=== PATIENT | female | born 1955 | race Caucasian/White ===

== ENCOUNTER → 2017-12-03 | Outpatient (CLI) | payer OTHER ==
[2017-06-24 14:19] VITALS: BMI 33.9
[~2017-12-03] MED LIST: ALBU8.5H12 IH; ALE70 PO; BENZ200C15 PO; CALC-703 PO; CELE-1 PO; CET10 PO; CETI10CA8 PO; CHOL100052 PO; CHOL200021 PO; CLON-303 PO; CYCL10TA29 PO; DEN60I SUBQ; DULO30CA35 PO; DULO60CA7 PO; ESOM40CA42 PO; EZE10 PO; FLU60SYR30 IM ONLY; GAB300 PO; GABA-549 PO; GOLYTE FT; HYDR-2966 PO; HYDR-385 PO; HYDR-4309 PO; LANS30CA70 PO; LEVE500T73 PO; LEVO-85 PO; LEVO25TA61 PO; LINA145C PO; LINA290C PO; LOR5/325; LORA-1456 PO; MOMR ENA; MON10 PO; MULT1TAB54 PO; NARA2.5T2 PO; NARA2.5T6 PO; OMEP40CA48 PO; ONDA4TAB PO; OXYC-870 PO; PANT40TA65 PO; PER PO; POTA20TA10 PO; PROP20TA56 PO; RANI-320 PO; RANI-324 PO; RIZA10TA PO; RIZA10TA24 PO; ROP5 PO; ROPI1TAB35 PO; ROPI1TAB36 PO; SUCR1TAB85 PO; SUMA100T32 PO; THYR15TA6 PO; THYR30TA21 PO; THYR60TA25 PO; TOPI-121 PO; TOPI100T PO; TRA50; TRAM-420 PO
--- NOTE | 2017-12-03 18:37 | EKG ---
FACILITY: [facility] - [place] PATIENT NAME: LUANN WALLACE : [id number] MR: [id number] V: [id number] EXAM DATE: ORDERING PHYSICIAN: BRIDGETTE YI TECHNOLOGIST: JARRED RUSSELL Test Reason : CHEST PAIN Blood Pressure : / mmHG Vent. Rate : 068 BPM Atrial Rate : 068 BPM P-R Int : 170 ms QRS Dur : 084 ms QT Int : 410 ms P-R-T Axes : 056 015 006 degrees QTc Int : 435 ms Normal sinus rhythm Nonspecific T wave abnormality Abnormal ECG Now with diffuse T flattening compared to previous Confirmed by HARRISON TYLER ([id number]) on 12/03/2017 11:03:40 PM Referred By: Confirmed By:HARRISON TYLER
== END ==
LOC: LAB 11:08
PROVIDERS: ATTEND Emergency Medicine
DX: L68.9 Hypertrichosis, unspecified (principal); E55.9 Vitamin D deficiency, unspecified; R94.31 Abnormal electrocardiogram [ECG] [EKG]
CPT/HCPCS: 36415; 82306; 82310; 82374; 82435; 82565; 82947; 84132; 84295; 84484; 84520

== ENCOUNTER → 2017-12-08 | Outpatient (CLI) | payer OTHER ==
[2017-06-24 14:19] VITALS: BMI 33.9
== END ==
LOC: LAB 09:46
PROVIDERS: ATTEND Emergency Medicine
DX: E87.6 Hypokalemia (principal); R94.6 Abnormal results of thyroid function studies
CPT/HCPCS: 36415; 82310; 82374; 82435; 82565; 82947; 84132; 84295; 84443; 84520

== ENCOUNTER → 2017-12-09 | Outpatient (CLI) | payer OTHER ==
[2017-06-24 14:19] VITALS: BMI 33.9
== END ==
LOC: LAB 09:55
PROVIDERS: ATTEND Emergency Medicine
DX: R30.0 Dysuria (principal)
CPT/HCPCS: 81001

== ENCOUNTER → 2017-12-15 | Outpatient (CLI) | payer OTHER ==
[2017-06-24 14:19] VITALS: BMI 33.9
== END ==
LOC: LAB 09:49
PROVIDERS: ATTEND Emergency Medicine
DX: E87.6 Hypokalemia (principal)
CPT/HCPCS: 36415; 82310; 82374; 82435; 82565; 82947; 84132; 84295; 84520

== ENCOUNTER 2017-12-17 13:13 | Emergency (ER) | payer OTHER ==
[2017-06-24 14:19] VITALS: Ht 167.6 cm; Wt 94.8 kg
[~2017-12-17] VITALS: Ht 167.6 cm; Wt 94.8 kg
--- NOTE | 2017-12-17 13:27 | ER Report ---
History and Physical Time Seen By MD: 13:25 Hx. of Stated Complaint: LOW k+, SOB HPI/ROS CHIEF COMPLAINT: Low potassium shortness of breath HISTORY OF PRESENT ILLNESS: [age] female history of hypokalemia is on potassium supplements last 3 or 4 days is been running in the 2.8 3.2 range supposedly for the last day or so she's been having more fatigue abdominal cramping episodically and some mild nonexertional shortness of breath. Patient's last time she had her potassium checked was several days ago she is denying chest pain at this time exertional dyspnea orthopnea or PND patient does state that that she is taking her supplements as indicated they believe this is secondary to her hydrochlorothiazide utilization which she has subsequently discontinued REVIEW OF SYSTEMS: Respiratory: No cough, mild dyspnea. Cardiovascular: No chest pain, no palpitations. Gastrointestinal: No vomiting, no abdominal pain. Musculoskeletal: No back pain. Remainder of the 14 system rev: Yes Allergies: Coded Allergies: levetiracetam (Verified Allergy, Intermediate, Rash, 12/17/17) tree and shrub pollen (Verified Allergy, Unknown, 12/17/17) weed pollen (Verified Allergy, Unknown, 12/17/17) Home Meds Active Scripts Potassium Chloride (Potassium Chloride) 20 Meq Tablet.er, 1 TAB PO BID, #5 TAB 0 Refills Take 40 meq x 3 days. 20 meq dialy x7 days. Prov:BRIDGETTE YI MD 12/15/17 Rizatriptan Benzoate (MAXALT) 10 Mg Tablet, 10 MG PO ONCE, #20 TAB Repeat in 2 hours if inadequate relief. Max of 3 tabs a day. Maximum of ten days in a month Prov:BRIDGETTE YI MD 12/08/17 Tramadol Hcl (TRAMADOL HCL) 50 Mg Tablet, 50 MG PO Q4-6H, #60 TAB 5 Refills Prov:BRIDGETTE YI MD 10/29/17 Topiramate (TOPAMAX) 100 Mg Tablet, 100 MG PO DAILY, #90 TAB 3 Refills Prov:BRIDGETTE YI MD 10/22/17 Levothyroxine Sodium (LEVOTHYROXINE SODIUM) 25 Mcg Tablet, 1 TAB PO DAILY, #90 TAB 3 Refills Prov:BRIDGETTE YI MD 10/22/17 Gabapentin (GABAPENTIN) 300 Mg Capsule, 1 CAP PO HS, #90 CAPSULE 3 Refills Prov:BRIDGETTE YI MD 10/22/17 Celecoxib (CELEBREX) 200 Mg Capsule, 1 CAP PO DAILY, #90 CAPSULE 3 Refills Prov:BRIDGETTE YI MD 10/22/17 Ropinirole Hcl (ROPINIROLE HCL) 1 Mg Tablet, 1 MG PO TID, #270 TAB 3 Refills Prov:BRIDGETTE YI MD 10/22/17 Duloxetine HCl (Duloxetine HCl) 60 Mg Capsule.dr, 1 CAP PO DAILY, #30 TAB 11 Refills Prov:BRIDGETTE YI MD 04/30/17 Ranitidine Hcl (ZANTAC) 150 Mg Tablet, 150 MG PO BID Y for REFLUX, #60 TAB 3 Refills Prov:KENDRA RINCON MD 04/09/16 Pantoprazole Sodium (PANTOPRAZOLE SODIUM) 40 Mg Tablet.dr, 1 TAB PO QDAY, #60 CAP 3 Refills Please take 1 tablet 1/2 hour before breakfast and 1 tablet 1/2 hour before supper. Prov:KENDRA RINCON MD 04/09/16 Reported Medications Cholecalciferol (Vitamin D3) (VITAMIN D) 2,000 Unit Capsule, 2000 UNIT PO DAILY , CAPSULE 12/02/14 Multivitamin (MULTI-VITAMIN DAILY) 1 Each Tablet, 1 EACH PO 11/16/14 Discontinued Scripts Clonazepam (CLONAZEPAM) 1 Mg Tablet, 0.5-1 MG PO BID, #45 TAB 5 Refills Take half tab in am and 1 tab at night Prov:BRIDGETTE YI MD 08/28/17 Hydrochlorothiazide (HYDROCHLOROTHIAZIDE) 25 Mg Tablet, 1 TAB PO QDAY, #90 TAB 3 Refills Prov:BRIDGETTE YI MD 10/22/17 Reviewed Nurses Notes: Yes Old Medical Records Reviewed: Yes Hx Smoking: No Smoking Status: Never Smoker Hx Substance Use Disorder: No Hx Alcohol Use: Yes Constitutional Vital Sign - Last 24 Hours 12/17/17 12/17/17 12/17/17 12/17/17 13:19 13:19 13:28 13:30 Temp 98.7 Pulse 88 85 Resp 18 B/P (MAP) 137/88 137/88 (104) 128/72 (90) Pulse Ox 98 95 O2 Delivery Room Air 2/12/17/17 12/17/17 12/17/17 13:43 13:58 14:00 14:13 Pulse 76 78 80 Resp 13 11 B/P (MAP) 116/69 (85) Pulse Ox 96 93 96 12/17/17 12/17/17 12/17/17 14:28 14:30 14:43 Pulse 81 84 Resp 14 12 B/P (MAP) 106/56 (73) Pulse Ox 91 93 Physical Exam General Appearance: The patient is alert, has no immediate need for airway protection and no current signs of toxicity. [ ] Eyes: Pupils equal and round no injection. Respiratory: Chest is non tender, lungs are clear to auscultation. Cardiac: regular rate and rhythm [ ] Gastrointestinal: Abdomen is soft and non tender, no masses, bowel sounds normal. Musculoskeletal: Neck: Neck is supple and non tender. Extremities have full range of motion and are non tender. Skin: No rashes or lesions. [ ] DIFFERENTIAL DIAGNOSIS: After history and physical exam differential diagnosis was considered for hypokalemia pulmonary emboli aortic dissection cardiac abnormality Medical Decision Making Data Points Result Diagram: 12/17/17 1332 12/17/17 1332 Laboratory Hematology Test 12/17/17 13:32 Red Blood Count 5.46 M/uL (4.17-5.56) Mean Corpuscular Volume 86.1 fL (80.0-96.0) Mean Corpuscular Hemoglobin 29.5 pg (26.0-33.0) Mean Corpuscular Hemoglobin Concent 34.3 g/dL (32.0-36.0) Red Cell Distribution Width 14.8 % (11.5-14.5) Mean Platelet Volume 7.4 fL (7.2-11.1) Neutrophils (%) (Auto) 61.3 % (39.4-72.5) Lymphocytes (%) (Auto) 26.6 % (17.6-49.6) Monocytes (%) (Auto) 8.7 % (4.1-12.4) Eosinophils (%) (Auto) 3.1 % (0.4-6.7) Basophils (%) (Auto) 0.3 % (0.3-1.4) Nucleated RBC Relative Count (auto) 0.0 /100WBC Neutrophils # (Auto) 5.0 K/uL (2.0-7.4) Lymphocytes # (Auto) 2.2 K/uL (1.3-3.6) Monocytes # (Auto) 0.7 K/uL (0.3-1.0) Eosinophils # (Auto) 0.3 K/uL (0.0-0.5) Basophils # (Auto) 0.0 K/uL (0.0-0.1) Nucleated RBC Absolute Count (auto) 0.00 K/uL Prothrombin Time 11.9 seconds (12.0-14.4) Prothromb Time International Ratio 0.88 Activated Partial Thromboplast Time 27 seconds (23-35) D-Dimer Quantitative (PE/DVT) 3.07 ug/ml (0-0.50) Sodium Level 142 mmol/L (137-145) Potassium Level 3.3 mmol/L (3.5-5.0) Chloride Level 105 mmol/L (98-107) Carbon Dioxide Level 26 mmol/L (22-31) Blood Urea Nitrogen 22 mg/dl (7-18) Creatinine 1.00 mg/dl (0.52-1.04) Glomerular Filtration Rate Calc 56.0 Random Glucose 94 mg/dl (75-110) Calcium Level 10.2 mg/dl (8.4-10.2) Total Bilirubin 0.3 mg/dl (0.2-1.3) Aspartate Amino Transf (AST/SGOT) 22 U/L (0-35) Alanine Aminotransferase (ALT/SGPT) 41 U/L (0-56) Alkaline Phosphatase 134 U/L (0-126) Troponin I < 0.012 ng/ml Total Protein 7.0 gm/dl (6.3-8.2) Albumin 3.7 g/dl (3.5-5.0) Chemistry Test 12/17/17 13:32 White Blood Count 8.2 k/uL (4.5-11.0) Red Blood Count 5.46 M/uL (4.17-5.56) Hemoglobin 16.1 g/dL (12.0-16.0) Hematocrit 47.0 % (34.0-47.0) Mean Corpuscular Volume 86.1 fL (80.0-96.0) Mean Corpuscular Hemoglobin 29.5 pg (26.0-33.0) Mean Corpuscular Hemoglobin Concent 34.3 g/dL (32.0-36.0) Red Cell Distribution Width 14.8 % (11.5-14.5) Platelet Count 244 K/uL (150-450) Mean Platelet Volume 7.4 fL (7.2-11.1) Neutrophils (%) (Auto) 61.3 % (39.4-72.5) Lymphocytes (%) (Auto) 26.6 % (17.6-49.6) Monocytes (%) (Auto) 8.7 % (4.1-12.4) Eosinophils (%) (Auto) 3.1 % (0.4-6.7) Basophils (%) (Auto) 0.3 % (0.3-1.4) Nucleated RBC Relative Count (auto) 0.0 /100WBC Neutrophils # (Auto) 5.0 K/uL (2.0-7.4) Lymphocytes # (Auto) 2.2 K/uL (1.3-3.6) Monocytes # (Auto) 0.7 K/uL (0.3-1.0) Eosinophils # (Auto) 0.3 K/uL (0.0-0.5) Basophils # (Auto) 0.0 K/uL (0.0-0.1) Nucleated RBC Absolute Count (auto) 0.00 K/uL Prothrombin Time 11.9 seconds (12.0-14.4) Prothromb Time International Ratio 0.88 Activated Partial Thromboplast Time 27 seconds (23-35) D-Dimer Quantitative (PE/DVT) 3.07 ug/ml (0-0.50) Glomerular Filtration Rate Calc 56.0 Calcium Level 10.2 mg/dl (8.4-10.2) Total Bilirubin 0.3 mg/dl (0.2-1.3) Aspartate Amino Transf (AST/SGOT) 22 U/L (0-35) Alanine Aminotransferase (ALT/SGPT) 41 U/L (0-56) Alkaline Phosphatase 134 U/L (0-126) Troponin I < 0.012 ng/ml Total Protein 7.0 gm/dl (6.3-8.2) Albumin 3.7 g/dl (3.5-5.0) Coagulation Test 12/17/17 13:32 Prothrombin Time 11.9 seconds Prothromb Time International Ratio 0.88 Activated Partial Thromboplast Time 27 seconds D-Dimer Quantitative (PE/DVT) 3.07 ug/ml ED Course/Re-evaluation ED Course ED clinical course medical decision make a 62-year-old female history of hypokalemia potassium today is 3.3 she is currently on resuscitative by mouth medication 40 mEq daily she had an elevated d-dimer CT was negative respiratory workup is normal we'll advise her to continue on her anti-and her potassium supplementation and follow up with primary care diagnosis hypokalemia EKG was unremarkable Decision to Disposition Date: Dec 17, 2017 Decision to Disposition Time: 15:46 Depart Departure Latest Vital Signs Vital Signs Date Time Temp Pulse Resp B/P (MAP) Pulse Ox O2 Delivery O2 Flow Rate FiO2 12/17/17 14:43 84 12 93 12/17/17 14:30 106/56 (73) 12/17/17 13:19 98.7 Room Air Impression: Primary Impression: Hypokalemia Condition: Improved Disposition: HOME OR SELF-CARE Referrals: BRIDGETTE YI MD (PCP) 5 Days Patient Instructions: Hypokalemia (DC) FARHANA FANG MD Dec 17, 2017 13:27
--- NOTE | 2017-12-17 13:33 | EKG ---
FACILITY: [facility] - [place] PATIENT NAME: LUANN WALLACE : [id number] MR: [id number] V: [id number] EXAM DATE: ORDERING PHYSICIAN: FARHANA FANG TECHNOLOGIST: Kalia Bhardwaj Reason : Blood Pressure : / mmHG Vent. Rate : 080 BPM Atrial Rate : 080 BPM P-R Int : 164 ms QRS Dur : 084 ms QT Int : 380 ms P-R-T Axes : 041 019 053 degrees QTc Int : 438 ms Normal sinus rhythm Low voltage QRS Borderline ECG When compared with ECG of 03-DEC-2017 10:58, Nonspecific T wave abnormality, improved in Anterior leads Confirmed by KENDRA SYLVESTER ([id number]) on 12/17/2017 3:14:02 PM Referred By: Confirmed By:KENDRA SYLVESTER
[2017-12-17 13:40] LABS: PLATELET COUNT, AUTOMATED 244 K/uL (150-450)
[2017-12-17 13:54] LABS: INR 0.88
--- NOTE | 2017-12-17 14:01 | RADIOLOGY IMAGING REPORT ---
FACILITY: [facility] - [place] PATIENT NAME: Rosa M Espinoza : 1955 MR: [id number] V: [id number] EXAM DATE: ORDERING PHYSICIAN: FARHANA FANG TECHNOLOGIST: Location: [facility] Patient: Rosa M Espinoza : 1955 Visit/Account:[id number] Date of Sevice: 12/17/2017 Exam type: CHEST PA AND LAT History: sob Comparison: August 19, 2016. Findings: The lungs are free of acute effusions, infiltrates or edema. No evidence of a pneumothorax or pneumo mediastinum. The cardiac silhouette is normal in size. The trachea is in midline. There are mild s pondylotic changes thoracic spine. IMPRESSION: 1. No acute cardiac pulmonary process is seen Report Dictated By: Miguelina Pereira MD at 12/17/2017 1:56 PM Report E-Signed By: Miguelina Pereira MD at 12/17/2017 1:58 PM [id number]
[2017-12-17] MEDS ORDERED: IOPAMIDOL 76% 75 ML INFUS BTL 75 ML ONE (14:41)
[2017-12-17] MEDS ORDERED: NS 0.9% 150 ML BAG 150 ML ONE (14:41)
--- NOTE | 2017-12-17 15:25 | RADIOLOGY IMAGING REPORT ---
FACILITY: [facility] PATIENT NAME: Rosa M Espinoza : 1955 MR: [id number] V: [id number] EXAM DATE: ORDERING PHYSICIAN: FARHANA FANG TECHNOLOGIST: Location: [facility] [place] Patient: Rosa M Espinoza : 1955 Visit/Account:[id number] Date of Sevice: 12/17/2017 EXAMINATION: CT CHEST PULMONARY ANGIOGRAM COMPARISON: Chest x-ray same day and earlier. Chest CT 06/23/2017 and earlier. HISTORY: Shortness of breath. PROCEDURE: Pulmonary arterial phase imaging of the chest with 75 mL intravenous Isovue 370. Reconstru ction of the source data set includes multiplanar 2D in the sagittal and coronal planes, and 3D recon structed coronal slab MIP series. One of the following dose optimization techniques was utilized in the performance of this exam: Autom ated exposure control; adjustment of the mA and/or kV according to the patient's size; or use of an i terative reconstruction technique. Specific details can be referenced in the facility's radiology C T exam operational policy. FINDINGS: Pulmonary vasculature: There is good contrast opacification of the pulmonary arterial system. No pul monary embolism. Main pulmonary artery size is normal. Cardiac and mediastinum: Cardiac chamber size is normal. No pericardial effusion. The presumed perica rdial cyst demonstrated on the prior studies is no longer identified. Thoracic aorta is unremarkable. No thoracic lymph node enlargement. Small hiatal hernia. Lungs and pleura: Mild lung base atelectasis. No consolidation or nodule. No pneumothorax, edema, or effusion. Airways: The central airways are patent. Upper abdomen: No evidence of acute disease in the visualized upper abdomen. Cholecystectomy. Small h iatal hernia. Osseous structures: Negative. IMPRESSION: No pulmonary embolism or evidence of acute cardiopulmonary disease. Report Dictated By: Vasquez Chan MD at 12/17/2017 3:09 PM Report E-Signed By: Vasquez Chan MD at 12/17/2017 3:20 PM WSN:[id number]
[2017-12-17 15:59] VITALS: BP 121/52
== END 2017-12-17 16:04 | disposition home or self-care (01) ==
LOC: ER 13:22
DX: E87.6 Hypokalemia (principal)
CPT/HCPCS: 71046; 71275; 84484; 85025; 85379; 85610; 85730; 93005; 99284; Q9967; 82040; 82247; 82310; 82374; 82435; 82565; 82947; 84075; 84132; 84155; 84295; 84450; 84460; 84520

== ENCOUNTER → 2017-12-26 | Outpatient (CLI) | payer OTHER ==
[2017-06-24 14:19] VITALS: BMI 33.9
[~2017-12-26] MED LIST changes: +CORED OT; +SUMA6PEN7 SQ
== END ==
LOC: LAB 10:26
PROVIDERS: ATTEND Emergency Medicine
DX: E87.6 Hypokalemia (principal)
CPT/HCPCS: 36415; 82310; 82374; 82435; 82565; 82947; 84132; 84295; 84520

== ENCOUNTER 2018-03-15 08:37 | Emergency (ER) | payer OTHER ==
[2017-06-24 14:19] VITALS: Wt 94.8 kg
[~2018-03-15 08:37] MED LIST changes: +AMOX-559 PO; +CODE118S5 PO; -RANI-324 PO; +RANI-366 PO
--- NOTE | 2018-03-15 08:46 | ER Report ---
History and Physical Time Seen By MD: 08:46 HPI/ROS 62-year-old female with multiple medical problems presents to the emergency department with a sharp pain in her left lower chest as well as cramping in her bilateral lower extremities that she has had on and off for months. She reports cramping of her lower extremities in the middle of the night. She has had hypokalemia in the past, but is not currently on potassium. She otherwise has no shortness of breath, no rashes, and no pleuritic chest pain. No PE risk factors. No fever chills, but reports a cough due to seasonal allergies. Remainder of the 14 system rev: Yes Allergies: Coded Allergies: levetiracetam (Verified Allergy, Intermediate, Rash, 12/17/17) tree and shrub pollen (Verified Allergy, Unknown, 12/17/17) weed pollen (Verified Allergy, Unknown, 12/17/17) clonazepam (Verified Adverse Reaction, Intermediate, Zombie, 12/26/17) hydrochlorothiazide (Verified Adverse Reaction, Intermediate, Severe hypokalemia, 12/26/17) Home Meds Active Scripts Sumatriptan Succinate (IMITREX) 100 Mg Tablet, 100 MG PO ONCE, #10 TAB Take one tablet at onset of headache and repeat in 2 hours if needed. Prov:BRIDGETTE YI MD 02/17/18 Pantoprazole Sodium (PANTOPRAZOLE SODIUM) 40 Mg Tablet.dr, 1 TAB PO QDAY, #60 CAP 3 Refills Please take 1 tablet 1/2 hour before breakfast and 1 tablet 1/2 hour before supper. Prov:KENDRA RINCNO MD 01/13/18 Tramadol Hcl (TRAMADOL HCL) 50 Mg Tablet, 50 MG PO Q4-6H, #60 TAB 5 Refills Prov:BRIDGETTE YI MD 10/29/17 Topiramate (TOPAMAX) 100 Mg Tablet, 100 MG PO DAILY, #90 TAB 3 Refills Prov:BRIDGETTE YI MD 10/22/17 Levothyroxine Sodium (LEVOTHYROXINE SODIUM) 25 Mcg Tablet, 1 TAB PO DAILY, #90 TAB 3 Refills Prov:BRIDGETTE YI MD 10/22/17 Gabapentin (GABAPENTIN) 300 Mg Capsule, 1 CAP PO HS, #90 CAPSULE 3 Refills Prov:BRIDGETTE YI MD 10/22/17 Celecoxib (CELEBREX) 200 Mg Capsule, 1 CAP PO DAILY, #90 CAPSULE 3 Refills Prov:BRIDGETTE YI MD 10/22/17 Ropinirole Hcl (ROPINIROLE HCL) 1 Mg Tablet, 1 MG PO TID, #270 TAB 3 Refills Prov:BRIDGETTE YI MD 10/22/17 Duloxetine HCl (Duloxetine HCl) 60 Mg Capsule.dr, 1 CAP PO DAILY, #30 TAB 11 Refills Prov:BRIDGETTE YI MD 04/30/17 Ranitidine Hcl (ZANTAC) 150 Mg Tablet, 150 MG PO BID Y for REFLUX, #60 TAB 3 Refills Prov:KENDRA RINCON MD 04/09/16 Reported Medications Cholecalciferol (Vitamin D3) (VITAMIN D) 2,000 Unit Capsule, 2000 UNIT PO DAILY , CAPSULE 12/02/14 Multivitamin (MULTI-VITAMIN DAILY) 1 Each Tablet, 1 EACH PO 11/16/14 Discontinued Scripts Promethazine HCl/Codeine (Promethazine-Codeine Syrup) 6.25 Mg-10 Mg/5 Ml Syrup, 5 ML PO Q4-6H, #200 MISC Prov:BRIDGETTE YI MD 01/21/18 Potassium Chloride (Potassium Chloride) 20 Meq Tablet.er, 1 TAB PO BID, #5 TAB 0 Refills Take 40 meq x 3 days. 20 meq dialy x7 days. Prov:BRIDGETTE YI MD 12/15/17 Reviewed Nurses Notes: Yes Old Medical Records Reviewed: Yes Hx Smoking: No Smoking Status: Never Smoker Hx Substance Use Disorder: No Hx Alcohol Use: Yes Constitutional Vital Sign - Last 24 Hours 03/15/18 03/15/18 03/15/18 03/15/18 08:37 08:42 08:45 08:52 Temp 97.9 Pulse ??? 79 81 Resp 16 B/P (MAP) 144/75 144/75 (98) Pulse Ox 96 96 03/15/18 03/15/18 03/15/18 03/15/18 09:00 09:07 09:22 09:30 Pulse 80 76 B/P (MAP) 142/76 (98) 138/82 (100) Pulse Ox 95 91 03/15/18 03/15/18 03/15/18 03/15/18 09:37 09:52 10:00 10:07 Pulse ? B/P (MAP) 128/77 (94) Pulse Ox 92 84 03/15/18 03/15/18 03/15/18 03/15/18 10:22 10:27 10:30 10:42 Pulse 72 74 72 B/P (MAP) 115/72 (86) Pulse Ox 90 92 89 03/15/18 03/15/18 03/15/18 03/15/18 10:57 11:00 11:12 11:27 Pulse 72 78 78 B/P (MAP) 110/73 (85) Pulse Ox 90 95 92 03/15/18 03/15/18 11:30 11:42 Pulse 85 B/P (MAP) 127/67 (87) Pulse Ox 91 Physical Exam General Appearance: The patient is alert, has no immediate need for airway protection and no current signs of toxicity. Eyes: Pupils equal and round no injection. Respiratory: Chest is non tender, lungs are clear to auscultation. Cardiac: regular rate and rhythm Gastrointestinal: Abdomen is soft and non tender, no masses, bowel sounds normal. Musculoskeletal: Mild TTP of the left lower, lateral chest wall Extremities: have full range of motion and are non tender. Skin: No rashes or lesions. DIFFERENTIAL DIAGNOSIS: After history and physical exam differential diagnosis was considered for PE, cardiac ischemia, infection, pleurisy, electrolyte disturbance Medical Decision Making Data Points Result Diagram: 03/15/18 0850 03/15/18 0850 Laboratory Hematology Test 03/15/18 08:46 03/15/18 08:50 Urine Color Straw Urine Clarity Clear Urine pH 8.0 pH (4.8-9.5) Urine Specific [place]le 1.003 Urine Protein Negative mg/dL (NEGATIVE) Urine Glucose (UA) Negative mg/dL (NEGATIVE) Urine Ketones Negative mg/dL (NEGATIVE) Urine Blood Negative (NEGATIVE) Urine Nitrite Negative (NEGATIVE) Urine Bilirubin Negative (NEGATIVE) Urine Urobilinogen Negative mg/dL (0.2-1.9) Urine Leukocyte Esterase Negative (NEGATIVE) Urine RBC <1 /HPF (0-2/HPF) Urine WBC <1 /HPF (0-5/HPF) Urine Squamous Epithelial Cells Many /LPF (</=FEW) Urine Bacteria Negative /HPF (NONE-FEW) Urine Mucus None /HPF (NONE-FEW) Red Blood Count 5.25 M/uL (4.17-5.56) Mean Corpuscular Volume 87.1 fL (80.0-96.0) Mean Corpuscular Hemoglobin 29.7 pg (26.0-33.0) Mean Corpuscular Hemoglobin Concent 34.2 g/dL (32.0-36.0) Red Cell Distribution Width 14.3 % (11.5-14.5) Mean Platelet Volume 8.1 fL (7.2-11.1) Neutrophils (%) (Auto) 51.4 % (39.4-72.5) Lymphocytes (%) (Auto) 32.4 % (17.6-49.6) Monocytes (%) (Auto) 7.1 % (4.1-12.4) Eosinophils (%) (Auto) 8.0 % (0.4-6.7) Basophils (%) (Auto) 1.1 % (0.3-1.4) Nucleated RBC Relative Count (auto) 0.0 /100WBC Neutrophils # (Auto) 2.9 K/uL (2.0-7.4) Lymphocytes # (Auto) 1.9 K/uL (1.3-3.6) Monocytes # (Auto) 0.4 K/uL (0.3-1.0) Eosinophils # (Auto) 0.5 K/uL (0.0-0.5) Basophils # (Auto) 0.1 K/uL (0.0-0.1) Nucleated RBC Absolute Count (auto) 0.00 K/uL Sodium Level 144 mmol/L (137-145) Potassium Level 3.5 mmol/L (3.5-5.0) Chloride Level 108 mmol/L (98-107) Carbon Dioxide Level 25 mmol/L (22-31) Blood Urea Nitrogen 14 mg/dl (7-18) Creatinine 0.90 mg/dl (0.52-1.04) Glomerular Filtration Rate Calc > 60.0 Random Glucose 101 mg/dl (75-110) Calcium Level 9.6 mg/dl (8.4-10.2) Magnesium Level 2.2 mg/dl (1.7-2.2) Total Bilirubin 0.5 mg/dl (0.2-1.3) Aspartate Amino Transf (AST/SGOT) 38 U/L (0-35) Alanine Aminotransferase (ALT/SGPT) 31 U/L (0-56) Alkaline Phosphatase 125 U/L (0-126) Total Protein 7.0 gm/dl (6.3-8.2) Albumin 4.2 g/dl (3.5-5.0) Chemistry Test 03/15/18 08:46 03/15/18 08:50 Urine Color Straw Urine Clarity Clear Urine pH 8.0 pH (4.8-9.5) Urine Specific Rochelle 1.003 Urine Protein Negative mg/dL (NEGATIVE) Urine Glucose (UA) Negative mg/dL (NEGATIVE) Urine Ketones Negative mg/dL (NEGATIVE) Urine Blood Negative (NEGATIVE) Urine Nitrite Negative (NEGATIVE) Urine Bilirubin Negative (NEGATIVE) Urine Urobilinogen Negative mg/dL (0.2-1.9) Urine Leukocyte Esterase Negative (NEGATIVE) Urine RBC <1 /HPF (0-2/HPF) Urine WBC <1 /HPF (0-5/HPF) Urine Squamous Epithelial Cells Many /LPF (</=FEW) Urine Bacteria Negative /HPF (NONE-FEW) Urine Mucus None /HPF (NONE-FEW) White Blood Count 5.7 k/uL (4.5-11.0) Red Blood Count 5.25 M/uL (4.17-5.56) Hemoglobin 15.6 g/dL (12.0-16.0) Hematocrit 45.7 % (34.0-47.0) Mean Corpuscular Volume 87.1 fL (80.0-96.0) Mean Corpuscular Hemoglobin 29.7 pg (26.0-33.0) Mean Corpuscular Hemoglobin Concent 34.2 g/dL (32.0-36.0) Red Cell Distribution Width 14.3 % (11.5-14.5) Platelet Count 210 K/uL (150-450) Mean Platelet Volume 8.1 fL (7.2-11.1) Neutrophils (%) (Auto) 51.4 % (39.4-72.5) Lymphocytes (%) (Auto) 32.4 % (17.6-49.6) Monocytes (%) (Auto) 7.1 % (4.1-12.4) Eosinophils (%) (Auto) 8.0 % (0.4-6.7) Basophils (%) (Auto) 1.1 % (0.3-1.4) Nucleated RBC Relative Count (auto) 0.0 /100WBC Neutrophils # (Auto) 2.9 K/uL (2.0-7.4) Lymphocytes # (Auto) 1.9 K/uL (1.3-3.6) Monocytes # (Auto) 0.4 K/uL (0.3-1.0) Eosinophils # (Auto) 0.5 K/uL (0.0-0.5) Basophils # (Auto) 0.1 K/uL (0.0-0.1) Nucleated RBC Absolute Count (auto) 0.00 K/uL Glomerular Filtration Rate Calc > 60.0 Calcium Level 9.6 mg/dl (8.4-10.2) Magnesium Level 2.2 mg/dl (1.7-2.2) Total Bilirubin 0.5 mg/dl (0.2-1.3) Aspartate Amino Transf (AST/SGOT) 38 U/L (0-35) Alanine Aminotransferase (ALT/SGPT) 31 U/L (0-56) Alkaline Phosphatase 125 U/L (0-126) Total Protein 7.0 gm/dl (6.3-8.2) Albumin 4.2 g/dl (3.5-5.0) Urinalysis Test 03/15/18 08:46 Urine Color Straw Urine Clarity Clear Urine pH 8.0 pH (4.8-9.5) Urine Specific [place]helle 1.003 Urine Protein Negative mg/dL (NEGATIVE) Urine Glucose (UA) Negative mg/dL (NEGATIVE) Urine Ketones Negative mg/dL (NEGATIVE) Urine Blood Negative (NEGATIVE) Urine Nitrite Negative (NEGATIVE) Urine Bilirubin Negative (NEGATIVE) Urine Urobilinogen Negative mg/dL (0.2-1.9) Urine Leukocyte Esterase Negative (NEGATIVE) Urine RBC <1 /HPF (0-2/HPF) Urine WBC <1 /HPF (0-5/HPF) Urine Squamous Epithelial Cells Many /LPF (</=FEW) Urine Bacteria Negative /HPF (NONE-FEW) Urine Mucus None /HPF (NONE-FEW) EKG/Imaging Imaging This is a 62-year-old female who presents to the emergency department with an intermittent sharp pain at her left lateral low chest. She has been coughing due to seasonal allergies for the past 1-2 weeks. No pleuritic chest pain, and no substernal chest pain. No abdominal pain, nausea vomiting or diarrhea. No trauma. The cramping episodes in her lower extremities are chronic for her, but her potassium was 3.5 so she was given 20 mEq of potassium. I do not think this is cardiac ischemia, PE, or shingles. Her chest x-ray is negative for an infiltrate. His pain-free with 1 dose of Toradol. Think this is more consistent with chest wall pain or costochondritis. I encouraged her to drink fluids and talk with her primary care provider as to whether or not she needs to go back on potassium replacement. ED Course/Re-evaluation ED Course This is a 62-year-old female who presents to the emergency department with an intermittent sharp pain at her left lateral low chest. She has been coughing due to seasonal allergies for the past 1-2 weeks. No pleuritic chest pain, and no substernal chest pain. No abdominal pain, nausea vomiting or diarrhea. No trauma. The cramping episodes in her lower extremities are chronic for her, but her potassium was 3.5 so she was given 20 mEq of potassium. I do not think this is cardiac ischemia, PE, or shingles. Her chest x-ray is negative for an infiltrate. His pain-free with 1 dose of Toradol. Think this is more consistent with chest wall pain or costochondritis. I encouraged her to drink fluids and talk with her primary care provider as to whether or not she needs to go back on potassium replacement. Decision to Disposition Date: March 15, 2018 Decision to Disposition Time: 11:43 Depart Departure Latest Vital Signs Vital Signs Date Time Temp Pulse Resp B/P (MAP) Pulse Ox O2 Delivery O2 Flow Rate FiO2 03/15/18 11:42 85 91 03/15/18 11:30 127/67 (87) 03/15/18 08:42 97.9 16 Impression: Primary Impression: Acute chest wall pain Additional Impression: Hypokalemia Condition: Improved Disposition: HOME OR SELF-CARE Referrals: BRIDGETTE YI MD (PCP) Patient Instructions: Hypokalemia (ED) Problem Qualifiers BRII GIPSON MD March 15, 2018 08:46
[2018-03-15 10:16] LABS: PLATELET COUNT, AUTOMATED 210 K/uL (150-450)
--- NOTE | 2018-03-15 10:18 | RADIOLOGY IMAGING REPORT ---
FACILITY: [facility] PATIENT NAME: Rosa M Espinoza : 1955 MR: [id number] V: [id number] EXAM DATE: ORDERING PHYSICIAN: BRII GIPSON TECHNOLOGIST: Location: [facility] [place] Patient: Rosa M Espinoza : 1955 Visit/Account:[id number] Date of Sevice: 03/15/2018 2 VIEWS CHEST INDICATION: Chest pain. Viral illness. COMPARISON: None available FINDINGS: The lungs are clear. No effusion or pneumothorax is seen. Heart size and mediastinal contours are nor mal. Cholecystectomy clips seen in the right upper quadrant. IMPRESSION: 1. No radiographic evidence of active disease. Report Dictated By: Ascencion Carpenter at 03/15/2018 10:13 AM Report E-Signed By: Ascencion Carpenter at 03/15/2018 10:14 AM WSN:[id number]
[2018-03-15] MEDS ORDERED: POTASSIUM CHL 10 MEQ TABCR PO ONE (11:10)
[2018-03-15 11:30] VITALS: BP 127/67
[2018-03-16] MEDS ORDERED: POTA20TA10 PO (13:54)
== END 2018-03-15 11:45 | disposition home or self-care (01) ==
LOC: ER 08:53
DX: R07.89 Other chest pain (principal); E87.6 Hypokalemia
CPT/HCPCS: 71046; 81001; 82040; 82247; 82310; 82374; 82435; 82565; 82947; 83735; 84075; 84132; 84155; 84295; 84450; 84460; 84520; 85025; 99284

== ENCOUNTER → 2018-03-24 | Outpatient (CLI) | payer OTHER ==
[2017-06-24 14:19] VITALS: BMI 33.9
--- NOTE | 2018-03-24 15:25 | RADIOLOGY IMAGING REPORT ---
FACILITY: [facility] PATIENT NAME: Rosa M Espinoza : 1955 MR: [id number] V: [id number] EXAM DATE: ORDERING PHYSICIAN: MARIALUISA HAIDER TECHNOLOGIST: Location: [facility] [place] Patient: Rosa M Espinoza : 1955 Visit/Account:[id number] Date of Sevice: 03/24/2018 SELLA IAC W/O CONTRAST Provided history: Follow-up acoustic neuroma. Additional pertinent history: none TECHNIQUE: Multiplanar multisequence brain MRI was performed without intravenous contrast. Additional focused sequences: HIgh resolution axial and coronal sequences on the IACs and cerebellop ontine angles. COMPARISON STUDIES: MRI 05/29/17 FINDINGS: Brain volume: Normal Acute ischemia: None Chronic cortical and ganglionic ischemia: none significant Hemorrhage: None Masses / edema: Reidentified is an intracanalicular tumor of the left IAC bulging through the porus acusticus. Today's maximal diameter 5 x 9 mm, unchanged on remeasurement of prior examination. Ther e is a visible persisting fundal cap. No secondary masses along the course of the seventh or eighth cranial nerves. The right IAC is normal. White matter lesions : There is a large ringlike periventricular T2 hyperintensity adjacent to the b yuki left lateral ventricle within the frontal lobe, unchanged from prior at which time it show perhap s minimal rim enhancement. Additional periventricular T2 hyperintensity adjacent to the left frontal horn and both atria of the lateral ventricles is mildly progressive and may indicate evidence of a d emyelinating process. In addition, there is indistinct T2 hyperintensity, more than is typical in th e deep white matter. No subcortical lesions are identified. Brainstem and cerebellum are negative. Vessels: Normal Extra-axial: Per above Calvarium / scalp: Negative Skull base / infratemporal fossa: negative Visualized sinuses / orbits / upper neck: negative IMPRESSION: 1. 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 2. White matter changes are mildly progressive. Consider potential MS. 3. No evidence of hemorrhage or acute ischemia. Report Dictated By: Jim Pagan MD at 03/24/2018 3:11 PM Report E-Signed By: Jim Pagan MD at 03/24/2018 3:22 PM WSN:[id number]
== END ==
LOC: MRI 02:11
PROVIDERS: ATTEND Otolaryngology
DX: D33.3 Benign neoplasm of cranial nerves (principal); R90.82 White matter disease, unspecified
CPT/HCPCS: 70552

== ENCOUNTER → 2018-04-01 | Outpatient (CLI) | payer OTHER ==
[2017-06-24 14:19] VITALS: BMI 33.9
== END ==
LOC: LAB 10:42
PROVIDERS: ATTEND Emergency Medicine
DX: E03.9 Hypothyroidism, unspecified (principal); Z86.39 Personal history of other endocrine, nutritional and metabolic disease
CPT/HCPCS: 36415; 82310; 82374; 82435; 82565; 82947; 84132; 84295; 84443; 84520

== ENCOUNTER 2018-05-22 09:07 | Emergency (ER) | payer OTHER ==
[2017-06-24 14:19] VITALS: Wt 94.8 kg
[~2018-05-22 09:07] MED LIST changes: -CLON-303 PO; +CLON-304 PO; +FURO-45 PO; +LEVO50TA86 PO
[2018-05-22] MEDS ORDERED: METOCLOPRAMIDE 10 MG/2 ML SDV IVP ONE (09:20)
[2018-05-22] MEDS ORDERED: KETOROLAC 15 MG/ML VIAL IVP ONE (09:20)
[2018-05-22] MEDS ORDERED: diphenhydrAMINE 50 MG/ML VIAL IVP ONE ×3 (09:20→11:10)
--- NOTE | 2018-05-22 10:17 | ER Report ---
History and Physical Time Seen By MD: 09:10 Hx. of Stated Complaint: MIGRAINE FOR ONE WEEK. HPI/ROS CHIEF COMPLAINT: headache HISTORY OF PRESENT ILLNESS: Pt has had reid x 1 wk; began as typical reid for her; states she's had ongoing r side neck pain (no midline) and this seems to bring on her 'migraines'; pt had intermittent has until the last 3 days when it has been constant and not responding to her home triptan. Last took yest, no meds today. Pt also c/o slight facial numbness that is occasional feature of her headaches. Reid was not sudden onset, is not wol, and has no features atypical for her. comes from base of neck throughout head. No cp, sob, ap, weakness, uti sympotms REVIEW OF SYSTEMS: Constitutional: No fever, no chills. Eyes: No discharge. ENT: No sore throat. Cardiovascular: No chest pain, no palpitations. Respiratory: chronic, non productive cough, no change in baseline shortness of breath. Gastrointestinal: No abdominal pain, no vomiting. Genitourinary: No hematuria. Musculoskeletal: No back pain. Does have r side neck pain Skin: No rashes. Neurological: as above Remainder of the 14 system rev: Yes Allergies: Coded Allergies: levetiracetam (Verified Allergy, Intermediate, Rash, 05/22/18) tree and shrub pollen (Verified Allergy, Unknown, 05/22/18) weed pollen (Verified Allergy, Unknown, 05/22/18) clonazepam (Verified Adverse Reaction, Intermediate, Zombie, 05/22/18) hydrochlorothiazide (Verified Adverse Reaction, Intermediate, Severe hypokalemia, 05/22/18) Home Meds Active Scripts Levothyroxine Sodium (LEVOTHYROXINE SODIUM) 50 Mcg Tablet, 50 MCG PO QDAY, #90 TAB Prov:BRIDGETTE YI MD 05/18/18 Pantoprazole Sodium (PANTOPRAZOLE SODIUM) 40 Mg Tablet.dr, 1 TAB PO QDAY, #60 CAP 6 Refills Please take 1 tablet 1/2 hour before breakfast. Prov:BRIDGETTE YI MD 05/12/18 Duloxetine HCl (Duloxetine HCl) 60 Mg Capsule.dr, 1 CAP PO DAILY, #90 TAB 1 Refill Prov:BRIDGETTE YI MD 05/08/18 Furosemide (FUROSEMIDE) 20 Mg Tablet, 1 TAB PO DAILY, #30 TAB Prov:BRIDGETTE YI MD 04/15/18 Potassium Chloride (Potassium Chloride) 20 Meq Tablet.er, 2 TAB PO DAILY, #60 TAB 0 Refills Prov:BRIDGETTE YI MD 04/15/18 Sumatriptan Succinate (IMITREX) 100 Mg Tablet, 100 MG PO ONCE, #10 TAB 1 Refill Take one tablet at onset of headache and repeat in 2 hours if needed. Prov:BRIDGETTE YI MD 03/30/18 Topiramate (TOPAMAX) 100 Mg Tablet, 100 MG PO DAILY, #90 TAB 3 Refills Prov:BRIDGETTE YI MD 10/22/17 Gabapentin (GABAPENTIN) 300 Mg Capsule, 1 CAP PO HS, #90 CAPSULE 3 Refills Prov:BRIDGETTE YI MD 10/22/17 Ropinirole Hcl (ROPINIROLE HCL) 1 Mg Tablet, 1 MG PO TID, #270 TAB 3 Refills Prov:BRIDGETTE YI MD 10/22/17 Ranitidine Hcl (ZANTAC) 150 Mg Tablet, 150 MG PO BID Y for REFLUX, #60 TAB 3 Refills Prov:KENDRA RINCON MD 04/09/16 Reported Medications Cholecalciferol (Vitamin D3) (VITAMIN D) 2,000 Unit Capsule, 2000 UNIT PO DAILY , CAPSULE 12/02/14 Multivitamin (MULTI-VITAMIN DAILY) 1 Each Tablet, 1 EACH PO 11/16/14 Discontinued Scripts Tramadol Hcl (TRAMADOL HCL) 50 Mg Tablet, 50 MG PO Q4-6H, #60 TAB 5 Refills Prov:BRIDGETTE YI MD 10/29/17 Levothyroxine Sodium (LEVOTHYROXINE SODIUM) 25 Mcg Tablet, 1 TAB PO DAILY, #90 TAB 3 Refills Prov:BRIDGETTE YI MD 10/22/17 Celecoxib (CELEBREX) 200 Mg Capsule, 1 CAP PO DAILY, #90 CAPSULE 3 Refills Prov:BRIDGETTE YI MD 10/22/17 Reviewed Nurses Notes: Yes Hx Smoking: No Smoking Status: Never Smoker Hx Substance Use Disorder: No Hx Alcohol Use: No Constitutional Vital Sign - Last 24 Hours 05/22/18 05/22/18 05/22/18 05/22/18 09:11 09:45 10:00 10:15 Temp 97.6 Pulse 86 89 89 89 Resp 18 B/P (MAP) 143/96 123/57 (79) Pulse Ox 96 92 O2 Delivery Room Air 05/22/18 10:30 Pulse 89 B/P (MAP) 126/84 (98) Physical Exam General Appearance: The patient is alert, has no immediate need for airway protection and no signs of toxicity. [ ] Eyes: Pupils equal and round no pallor or injection. no nystag ENT, Mouth: Mucous membranes are moist. Respiratory: There are no retractions, lungs are clear to auscultation. Cardiovascular: Regular rate and rhythm. no m/r/g Gastrointestinal: Abdomen is soft and non tender, no masses, bowel sounds normal. Neurological: alert, oriented x 4, cn ii-xii intact with exception of decreased lt touch r side face c/w symptoms and hx. 5/5 ms throughout, no ataxia Skin: Warm and dry, no rashes. Musculoskeletal: Neck is supple. No midline ttp. R side trapezius ttp throughout that reproduces symptoms. Extremities are nontender, nonswollen and have full range of motion. [ ] DIFFERENTIAL DIAGNOSIS: After history and physical exam differential diagnosis was considered for headache including but not limited to subarachnoid hemorrhage , migraine headache, tension headache and infectious causes such as meningitis, pharyngitis and sinusitis. Medical Decision Making ED Course/Re-evaluation ED Course Considered emergent causes of reid as above, though pt has no new/diff features for her, and no objective neurologic deficits. Pt's reid resolves after ed treatment, though tx is complicated by akasthetic reaction to reglan. Ultimately this is improving, though not resolved at time of d/c, though pt wishes to rtn home to rest. Pt has continued r sided neck pain with trigger point at insertion of r trapezius. After ED eval, v low posttest prob of sah, ich, mening/enceph or other emergent disease, v low likelihood of vert a dissection, thrombophlebitis or other emergent dis. Decision to Disposition Date: May 22, 2018 Decision to Disposition Time: 11:18 Depart Departure Latest Vital Signs Vital Signs Date Time Temp Pulse Resp B/P (MAP) Pulse Ox O2 Delivery O2 Flow Rate FiO2 05/22/18 10:30 89 126/84 (98) 05/22/18 09:45 92 05/22/18 09:11 97.6 18 Room Air Impression: Primary Impression: Migraine headache Additional Impressions: Akathisia Trapezius muscle spasm Condition: Improved Disposition: HOME OR SELF-CARE Referrals: BRIDGETTE YI MD (PCP) Patient Instructions: Acute Headache (ED), Cervical Neck Strain Exercises (GEN) Problem Qualifiers Primary Impression: Migraine headache Migraine type: unspecified Status migrainosus presence: without status migrainosus Intractability: not intractable Qualified Codes: G43.909 - Migraine, unspecified, not intractable, without status migrainosus KOURTNEY GIPSON MD May 22, 2018 10:17
[2018-05-22] MEDS ORDERED: DIAZEPAM 50 MG/10 ML MDV IVP ONE (10:30)
[2018-05-22 11:24] VITALS: BP 129/78
== END 2018-05-22 11:27 | disposition home or self-care (01) ==
LOC: ER 09:07
DX: G43.909 Migraine, unspecified, not intractable, without status migrainosus (principal); G25.71 Drug induced akathisia; M62.838 Other muscle spasm
CPT/HCPCS: 96374; 96375; 96376; 99284; J1200; J1885; J2765; J3360

== ENCOUNTER → 2018-07-02 | Outpatient (CLI) | payer OTHER ==
[2017-06-24 14:19] VITALS: BMI 33.9
== END ==
LOC: LAB 15:36
PROVIDERS: ATTEND Obstetrics & Gynecology
DX: N76.0 Acute vaginitis (principal)
CPT/HCPCS: 87210

== ENCOUNTER → 2018-08-04 | Outpatient (CLI) | payer OTHER ==
[2017-06-24 14:19] VITALS: BMI 33.9
[~2018-08-04] MED LIST changes: +BARIUM SULFATE 176 GM BTL PO ONE; +BARIUM SULFATE 340 GM POWD ONE; +ESTR42.5 PV
--- NOTE | 2018-08-04 14:54 | RADIOLOGY IMAGING REPORT ---
[place] [facility] [place] NAME: Rosa M Espinoza : 1955 MR: [id number] V: [id number] EXAM DATE: ORDERING PHYSICIAN: KENDRA RINCON TECHNOLOGIST: [facility] Patient: Rosa M Espinoza : 1955 Visit/Account:[id number] Date of Sevice: 08/04/2018 Exam type: UPPER GI W/SMALL BOWEL SERIES History: Hilar hernia, GERD, constipation Comparison: Upper GI series the right 2015. Findings: Preliminary procurement analyst film of abdomen reveals a large amount stool in the right-sided the colon. Double contrast upper GI series was performed with and thin barium and air contrast. There is mild narrowing in the upper thoracic esophagus at the approximate level of the clavicles. T here is mild narrowing at the lower esophageal sphincter. A large amount of gastroesophageal reflux was observed. There is a moderate size hiatal hernia. No abnormality of the stomach duodenal bulb o r duodenal C-loop was seen. The barium was then followed throughout the normal-appearing small bowel to the unremarkable terminal ileum. Transit time to the right-sided the colon was one hour and 35 m inutes. No mucosal abnormalities were identified. There is no evidence of small bowel dilatation or extrinsic mass effect. The examination dose area product was 2554.23 micro-French per meter squared IMPRESSION: 1. Moderate size hiatal hernia with a large amount of gastroesophageal reflux and mild narrowing at the lower esophageal sphincter There also appear to be mild narrowing in the upper thoracic esophagus at the approximate level of th e clavicles The remainder the upper GI series and small bowel follow-through is unremarkable Report Dictated By: Miguelina Pereira MD at 08/04/2018 2:46 PM Report E-Signed By: Miguelina Pereira MD at 08/04/2018 2:50 PM WSN:[email or web address]
== END ==
LOC: RAD 00:46
PROVIDERS: ATTEND Surgery
DX: K21.9 Gastro-esophageal reflux disease without esophagitis (principal); K44.9 Diaphragmatic hernia without obstruction or gangrene
CPT/HCPCS: 74245

== ENCOUNTER 2018-08-25 02:31 | Day surgery (SDC) | payer OTHER ==
[2017-06-24 14:19] VITALS: Ht 165.1 cm; Wt 104.3 kg
[2018-08-25] VITALS (7 sets, daily range): BP systolic 96–134; BP diastolic 60–92
[~2018-08-25] VITALS: Ht 165.1 cm; Wt 104.3 kg
[~2018-08-25 02:31] MED LIST changes: -BARIUM SULFATE 176 GM BTL PO ONE; -BARIUM SULFATE 340 GM POWD ONE; -CLON-304 PO; +CLON-333 PO; +FRO2.5PT PO; -HYDR-4309 PO; +HYDR-653 PO; +MAGN100T PO
[2018-08-25] MEDS ORDERED: NORMOSOL R SOLN(*) 1000 ML BAG 1,000 ML IV PRN (12:00)
[2018-08-25] MEDS ORDERED: LIDOCAINE/SOD BICARB 8.4% SYR ID ONE (12:00)
[2018-08-25] MEDS ORDERED: KETAMINE HCL 500 MG/10 ML VIAL ONE (12:56)
[2018-08-25] MEDS ORDERED: PROPOFOL EMUL(*) 10MG/ML 20 ML 60 ML ONE (12:56)
[2018-08-25] MEDS ORDERED: LIDOCAINE MPF 1% 5 ML VIAL ONE (12:56)
--- NOTE | 2018-08-25 13:31 | Short(Outpt) Discharge Summary ---
Discharge Summary Reason for Hosp/Final Diag: (1) Dysphagia Status: Chronic Hospital Course & Plan: EGD with biopsies and esophageal dilation completed without problems. (2) Epigastric abdominal pain Status: Chronic (3) Hiatal hernia Status: Chronic (4) GERD (gastroesophageal reflux disease) Status: Chronic Departure Discharge to: Home, Self Care Discharge Instructions Home Meds Active Scripts Estrogens, Conjugated (Premarin) 0.625 Mg/Gram Cream.appl, 0.5 GM PV DIRECTED for 30 Days, #1 TUBE 6 Refills 0.5 gram PV QHS for 2 weeks then 2 times per week thereafter Prov:SERJIO TEAGUE MD 07/09/18 Levothyroxine Sodium (LEVOTHYROXINE SODIUM) 50 Mcg Tablet, 50 MCG PO QDAY, #90 TAB Prov:BRIDGETTE YI MD 05/18/18 Pantoprazole Sodium (PANTOPRAZOLE SODIUM) 40 Mg Tablet.dr, 1 TAB PO QDAY, #60 CAP 6 Refills Please take 1 tablet 1/2 hour before breakfast. Prov:BRIDGETTE YI MD 05/12/18 Duloxetine HCl (Duloxetine HCl) 60 Mg Capsule.dr, 1 CAP PO DAILY, #90 TAB 1 Refill Prov:BRIDGETTE YI MD 05/08/18 Topiramate (TOPAMAX) 100 Mg Tablet, 100 MG PO DAILY, #90 TAB 3 Refills Prov:BRIDGETTE YI MD 10/22/17 Ropinirole Hcl (ROPINIROLE HCL) 1 Mg Tablet, 1 MG PO TID, #270 TAB 3 Refills Prov:BRIDGETTE YI MD 10/22/17 Ranitidine Hcl (ZANTAC) 150 Mg Tablet, 150 MG PO BID PRN for REFLUX, #60 TAB 3 Refills Prov:KENDRA RINCON MD 04/09/16 Reported Medications Ranitidine Hcl (ZANTAC) 150 Mg Tablet, 150 MG PO HS, TAB 08/13/18 Gabapentin (GABAPENTIN) 300 Mg Capsule, 600 MG PO HS, CAPSULE 08/13/18 Magnesium Amino Acid Chelate (MAGNESIUM) 100 Mg Tablet, 100 MG PO 08/10/18 Frovatriptan Succinate (FROVA) 2.5 Mg Tablet, 2.5 MG PO PRN 08/10/18 Cholecalciferol (Vitamin D3) (VITAMIN D) 2,000 Unit Capsule, 2000 UNIT PO DAILY, CAPSULE 12/02/14 Multivitamin (MULTI-VITAMIN DAILY) 1 Each Tablet, 1 EACH PO 11/16/14 Diet: Regular Activity: As Tolerated Special Instructions: Your upper endoscopy was completed without problems. I performed several biopsies and they were sent to pathology. I also dilated your esophagus. Stay on the pantoprazole and my office will call you in the next day or two to schedule a follow up appointment to see me back and discuss the results with you and determine the next course of action based on the study results and how you're feeling. Problem Qualifiers (1) Dysphagia: Dysphagia type: esophageal phase Qualified Codes: R13.10 - Dysphagia, unspecified (2) GERD (gastroesophageal reflux disease): Esophagitis presence: without esophagitis Qualified Codes: K21.9 - Gastro- esophageal reflux disease without esophagitis KENDRA RINCON MD Aug 25, 2018 13:31
== END 2018-08-25 14:35 | disposition home or self-care (01) ==
LOC: OR 02:31
PROVIDERS: ATTEND Surgery
DX: K44.9 Diaphragmatic hernia without obstruction or gangrene (principal)
CPT/HCPCS: 43239; 43248; 87077; 88305; J2001; J2704; J3490

== ENCOUNTER → 2018-08-28 | Outpatient (CLI) | payer OTHER ==
[2017-06-24 14:19] VITALS: BMI 33.9
[~2018-08-28] MED LIST changes: +BUPR-472 PO; +LEVO75TA73 PO; +POTA-53 PO
--- NOTE | 2018-08-28 15:45 | RADIOLOGY IMAGING REPORT ---
[place] [facility] [place]IENT NAME: Rosa M Espinoza : 1955 MR: [id number] V: [id number] EXAM DATE: ORDERING PHYSICIAN: KENDRA RINCON TECHNOLOGIST: Location: [facility] - [place], [place] Patient: Rosa M Espinoza : 1955 Visit/Account:[id number] Date of Sevice: 08/28/2018 EXAMINATION: Nuclear Medicine Gastric Emptying Study 08/28/2018 7:00 AM History: Epigastric pain, GERD, hiatal hernia, regurgitation TECHNIQUE: 2.2 mCi technetium 99m sulfur colloid was mixed with eggbeaters and toast. The patient i ngested the mixture while seated in an upright position. Multiple sequential gamma camera images were obtained of the upper abdomen. A computer-generated region of interest was placed around the stomach and the time activity curve for the stomach was derived and the gastric emptying T1/2 was calculated . COMPARISON STUDIES: Upper GI 08/04/2018 FINDINGS: Image assessment: Normal filling of stomach, no evidence of gastroesophageal reflux and normal progr ession of radionuclide into proximal small bowel. Half life radionuclide in the stomach: 44 min (normal 20 - 45 min) 4 hour emptying 100% (normal > 90%) IMPRESSION: Gastric emptying half life is within upper normal range. Four-hour gastric emptying is normal. Report Dictated By: Jase Sinha MD at 08/28/2018 3:38 PM Report E-Signed By: Jase Sinha MD at 08/28/2018 3:41 PM WSN:[email or web address]
== END ==
LOC: RAD 06:37
PROVIDERS: ATTEND Surgery
DX: R10.13 Epigastric pain (principal); K21.9 Gastro-esophageal reflux disease without esophagitis; K44.9 Diaphragmatic hernia without obstruction or gangrene; R11.10 Vomiting, unspecified
CPT/HCPCS: 78264; A9541

== ENCOUNTER → 2018-11-10 | Outpatient (CLI) | payer OTHER ==
[2017-06-24 14:19] VITALS: BMI 33.9
[~2018-11-10] MED LIST changes: +FLU60SYR36 IM
--- NOTE | 2018-11-10 11:14 | RADIOLOGY IMAGING REPORT ---
FACILITY: [facility] PATIENT NAME: Rosa M Espinoza : 1955 MR: [id number] V: [id number] EXAM DATE: ORDERING PHYSICIAN: BECKY GAONA TECHNOLOGIST: Location: [facility] [place] Patient: Rosa M Espinoza : 1955 Visit/Account:[id number] Date of Sevice: 11/10/2018 Exam type: CHEST PA LAT History: Shortness of breath Comparison: March 15, 2018. Findings: There is mild chronic linear stranding the lung bases. There is no evidence of acute appearing infil trates, pleural effusions or pulmonary edema. Cardiac silhouette is normal in size. There is a sugg estion of a small hiatal hernia. IMPRESSION: 1. Mild linear scarring in the lung bases Suggestion of a small hiatal hernia Report Dictated By: Miguelina Pereira MD at 11/10/2018 11:04 AM Report E-Signed By: Miguelina Pereira MD at 11/10/2018 11:05 AM WSN:[email or web address]
== END ==
LOC: RAD 09:26
PROVIDERS: ATTEND Internal Medicine
DX: R91.8 Other nonspecific abnormal finding of lung field (principal)
CPT/HCPCS: 71046

== ENCOUNTER → 2018-11-10 | Outpatient (CLI) | payer OTHER ==
[2017-06-24 14:19] VITALS: BMI 33.9
--- NOTE | 2018-11-10 14:11 | RADIOLOGY IMAGING REPORT ---
FACILITY: [facility] [place] PATIENT NAME: LUANN WALLACE : [id number] MR: [id number] V: [id number] EXAM DATE: [id number] ORDERING PHYSICIAN: BRIDGETTE YI TECHNOLOGIST: Michelle Gomes PROCEDURE:BILATERAL DIGITAL SCREENING MAMMOGRAM WITH CAD ASSISTED INTERPRETATION & 3D TOMOSYNTHESIS COMPARISON:Prior mammograms dated 09/24/17, 01/19/16, 09/30/14, 09/09/12 INDICATIONS:Screening FINDINGS: Scattered fibroglandular densities are seen throughout the breasts. The parenchymal pattern has remained stable allowing for difference in mammographic technique & patient positioning. DIAGNOSTIC CATEGORY 1--NEGATIVE. RECOMMENDATIONS: ROUTINE MAMMOGRAM AND CLINICAL EVALUATION. IMPRESSION: BIRADS 1: Negative. No significant abnormality is seen. Dictated by: Miguelina Pereira M.D. on 11/10/2018 at 10:42 Transcribed by: MAXIMILIANO on 11/10/2018 at 12:54 Approved by: Miguelina Pereira M.D. on 11/10/2018 at 14:10 [facility]
== END ==
LOC: MAMO 01:20
PROVIDERS: ATTEND Emergency Medicine
DX: Z12.31 Encounter for screening mammogram for malignant neoplasm of breast (principal)
CPT/HCPCS: 77063; 77067

== ENCOUNTER 2019-02-09 13:57 | Outpatient (RCR) | payer OTHER ==
[2017-06-24 14:19] VITALS: Ht 167.6 cm; Wt 106.6 kg
[~2019-02-09] VITALS: Ht 167.6 cm; Wt 106.6 kg
[~2019-02-09 13:57] MED LIST changes: +GALC120P SUBQ; +LIRA3PEN SUBQ
--- NOTE | 2019-02-11 13:35 | Medical Nutrition Therapy ---
Nutrition Anthropometrics Height (Inches): 66 Weight (Pounds): 235 (standing scale) BMI: 37.9 Brad Nutrition Score: Brad Nutrition Risk Score: Dietary Referral Nutrition Risk Factors: Nutrition Risk Comment: Physical Findings Physical Appearance: Obese BMI 30-39 Skin Appearance Skin Appearance: Edema Edema Location Modifier: Edema Location: Type of Edema: Degree of Edema: Gastrointestinal Symptoms GI Symtoms: Tube Present: Bowel Sounds: Recent Bowel Pattern: Stool Characteristics: Nutrition/Food History Breakfast: coffee, 1Tcream, 2tsp sugar; banana or 1sl WW toast, 1 egg Lunch: saald with meat or sandwich, apple or skips Dinner: : 2 sl pizzza, clarence raspberries or shortcake or meat/starch/veg Snacks: cracker, PB, chips Nutritional Education Nutrition Education Topic: Weight Loss Diet Learning Readiness: Interested Teaching Methods: Discussion, Handout, Demonstration Response to Teaching: Verbalize understanding, Reinforcement needed Teaching Recipient: Patient Nutrition Counseling: late entry for 02/09: Pt states has gained 100# in the past 5 year after stopped working. BMI is in class 2 obesity range. Reviewed typical day. Pt has issues with emotional eating. discussed various diets including Keto, high rpotein/low CHO and Mediterranian. Provided meal plan of 30gm CHO/meal with unlimited veg, protein and limit fat to 1-2 servings/meal. Pt will add calorie semaj or Lucidworkspal pam to phone and will track intake for 1 week. Pt scheduled for f/u session 1 week to determine if pt is consuming more kcal than she beleives she is eating or if she is eating at a wt loss level. Pt belives her hypothyroid may be contributing to wt gain. Will address emotional eating at that time. Nutrition Monitoring & Eval RD Patient Assessment Time: [address] Assessment Type: RD Education Nutritional Comment: Provided 60 minutes MNT for obesity. Copies To Copies to: BRIDGETTE YI MD ; JASON HERNANDEZ Feb 10, 2019 09:40
[2019-03-03] MEDS ORDERED: POTA-53 PO (10:12)
[2019-03-09] MEDS ORDERED: FURO-45 PO (08:59)
== END 2019-03-16 ==
LOC: DIET 13:57
PROVIDERS: ATTEND Emergency Medicine
DX: E66.9 Obesity, unspecified (principal); Z68.37 Body mass index [BMI] 37.0-37.9, adult
CPT/HCPCS: 97802

== ENCOUNTER 2019-03-11 12:26 | Outpatient (RCR) | payer OTHER ==
[2017-06-24 14:19] VITALS: Wt 106.1 kg
[~2019-03-11 12:26] MED LIST changes: -RANI-366 PO; +RANI-54 PO
--- NOTE | 2019-03-12 16:00 | Medical Nutrition Therapy ---
Nutrition Anthropometrics Weight (Pounds): 234 Brad Nutrition Score: Brad Nutrition Risk Score: Dietary Referral Nutrition Risk Factors: Nutrition Risk Comment: Nutrition/Food History Breakfast: coffe , cream/sugar, cereal, banana, wh milk Lunch: 10-15 crackers with PB Dinner: 1pc toast with chipped beef Snacks: apple, popcorn Nutritional Education Nutrition Education Topic: Weight Loss Diet Learning Readiness: Interested Teaching Methods: Discussion, Handout Response to Teaching: Verbalize understanding Teaching Recipient: Patient Nutrition Counseling: Pt is down 1#. pt states has not been following meal plan. Reviewed intake and recommend increasing veg intake, having protein source at each meal. . Provided Gsr-edri-ph-a-time handout with menu ideas. pt declined f/u weigh -in. Nutrition Monitoring & Eval RD Patient Assessment Time: [address] Assessment Type: RD Education Nutritional Comment: Provided 50 minuts MNT for prediabetes/obesity Copies To Copies to: BRIDGETTE YI MD ; JASON HERNANDEZ March 12, 2019 15:56
[2019-03-29] MEDS ORDERED: LEVO50TA86 PO (16:55)
[2019-04-07] MEDS ORDERED: ROPI4TAB PO (10:49)
[2019-04-07] MEDS ORDERED: MOMR ENA (10:49)
[2019-04-07] MEDS ORDERED: CYCL10TA29 PO (10:49)
[2019-04-07] MEDS ORDERED: PANT40TA65 PO (10:49)
[2019-04-07] MEDS ORDERED: CETI-176 PO (10:49)
[2019-04-07] MEDS ORDERED: FRO2.5PT PO (10:52)
[2019-04-11] MEDS ORDERED: CEFU500T10 PO (03:14)
[2019-04-15] MEDS ORDERED: ASPI-757 PO (08:27)
[2019-04-15] MEDS ORDERED: FURO-45 PO (08:27)
== END 2019-04-15 ==
LOC: DIET 12:26
PROVIDERS: ATTEND Emergency Medicine
DX: E66.9 Obesity, unspecified (principal); Z71.3 Dietary counseling and surveillance
CPT/HCPCS: 97803

== ENCOUNTER → 2019-03-31 | Outpatient (CLI) | payer OTHER ==
[2017-06-24 14:19] VITALS: BMI 33.9
--- NOTE | 2019-03-31 10:38 | RADIOLOGY IMAGING REPORT ---
FACILITY: [facility] [place] PATIENT NAME: Rosa M Espinoza : 1955 MR: [id number] V: [id number] EXAM DATE: ORDERING PHYSICIAN: BRIDGETTE YI TECHNOLOGIST: Location: [facility] - [place] Patient: Rosa M Espinoza : 1955 Visit/Account:[id number] Date of Sevice: 03/31/2019 CHEST PA LAT HISTORY: Preop knee surgery. COMPARISON: Chest x-ray November 10, 2018. FINDINGS: Cardiomediastinal contours: The heart size is normal. Lungs and pleura: There is elevation of left hemidiaphragm. Linear density left lung base represents stable scar. There is no new infiltrate. Bones/soft tissues: There are no findings of a fracture. Abdomen: There are surgical clips in right upper quadrant. IMPRESSION: 1. Scarring in the left lower lobe with findings suggestive of volume loss manifesting as elevation of the left hemidiaphragm. 2. No active disease in the chest. Report Dictated By: Andrea Pryor MD at 03/31/2019 10:31 AM Report E-Signed By: Andrea Pryor MD at 03/31/2019 10:33 AM WSN:[email or web address]
== END ==
LOC: LAB 09:40
PROVIDERS: ATTEND Emergency Medicine
DX: Z01.818 Encounter for other preprocedural examination (principal); R91.8 Other nonspecific abnormal finding of lung field
CPT/HCPCS: 71046

== ENCOUNTER 2019-04-11 01:43 | Emergency (ER) | payer OTHER ==
[2017-06-24 14:19] VITALS: BMI 33.9
[~2019-04-11 01:43] MED LIST changes: +CETI-176 PO; +ROPI4TAB PO
--- NOTE | 2019-04-11 02:26 | ER Report ---
History and Physical Time Seen By MD: 02:25 Hx. of Stated Complaint: COUGH FOR ABOUT 2 WEEKS; PATIENT HAS BEEN TREATED WITH ANTIBIOTICS BUT STATES THAT SINCE FINISHING THEM SHE HAS NOT GOTTEN BETTER; PATIENT IS SUPPOSE TO HAVE KNEE REPLACEMENT SURGERY ON FRIDAY AND IS WORRIED SHE WONT BE ABLE TO HAVE IT. HPI/ROS CHIEF COMPLAINT: Persistent cough HISTORY OF PRESENT ILLNESS: 63-year-old female who has plans to undergo total left knee replacement by Dr. Lomeli on 04/13/19. Patient's been having a cough for 2-3 weeks. She was seen by her primary care Dr Luna on 03/31/19 and a chest x-ray was performed which showed some bibasilar scarring, but no obvious infiltrate. Patient was subsequent follow-up at urgent care. She was placed on a course of doxycycline, which she has finished and has no improvement. Patient notes no fever or chills. The cough is quite wet and deep. She has chronic postnasal drip from allergies. She is on Flonase, a nondrowsy antihistamine. She also has GERD and she is on Protonix. Patient's concerned due to her cough. Her surgery will be canceled on Friday. Patient also has sleep apnea but does not tolerate C Pap. REVIEW OF SYSTEMS: Respiratory: As above Cardiovascular: No chest pain, no palpitations. Gastrointestinal: No vomiting, no abdominal pain. Musculoskeletal: No back pain. Allergies: Coded Allergies: levetiracetam (Verified Allergy, Intermediate, Rash, 04/11/19) tree and shrub pollen (Verified Allergy, Unknown, 04/11/19) weed pollen (Verified Allergy, Unknown, 04/11/19) metoclopramide (Verified Adverse Reaction, Severe, Shaking, 04/11/19) clonazepam (Verified Adverse Reaction, Intermediate, Zombie, 04/11/19) hydrochlorothiazide (Verified Adverse Reaction, Intermediate, Severe hypokalemia, 04/11/19) Home Meds Active Scripts Cefuroxime Axetil (CEFUROXIME) 500 Mg Tablet, 500 MG PO BID for infection, #14 TAB Prov:JAMES DAWKINS DO 04/11/19 Levothyroxine Sodium (LEVOTHYROXINE SODIUM) 50 Mcg Tablet, 50 MCG PO QDAY, #45 TAB 0 Refills Prov:BRIDGETTE LUNA MD 03/29/19 Furosemide (FUROSEMIDE) 20 Mg Tablet, 1 TAB PO DAILY, #90 TAB 2 Refills Prov:BRIDGETTE LUNA MD 03/09/19 Potassium Chloride (POTASSIUM CHLORIDE) 10 Meq Tab.er.prt, 10 MEQ PO QDAY for edema, #30 TAB 5 Refills Prov:BRIDGETTE LUNA MD 03/03/19 Duloxetine HCl (Duloxetine HCl) 60 Mg Capsule.dr, 1 CAP PO DAILY, #90 TAB 1 Refill Prov:BRIDGETTE LUNA MD 11/06/18 Celecoxib (CELEBREX) 200 Mg Capsule, 200 MG PO QDAY for 90 Days, #90 CAPSULE 3 Refills Prov:BRIDGETTE LUNA MD 10/22/18 Estrogens, Conjugated (Premarin) 0.625 Mg/Gram Cream.appl, 0.5 GM PV DIRECTED for 30 Days, #1 TUBE 6 Refills 0.5 gram PV QHS for 2 weeks then 2 times per week thereafter Prov:SERJIO TEAGUE MD 07/09/18 Topiramate (TOPAMAX) 100 Mg Tablet, 100 MG PO DAILY, #90 TAB 3 Refills Prov:BRIDGETTE LUNA MD 10/22/17 Ranitidine Hcl (ZANTAC) 150 Mg Tablet, 150 MG PO BID PRN for REFLUX, #60 TAB 3 Refills Prov:KENDRA RINCON MD 04/09/16 Reported Medications Frovatriptan Succinate (FROVA) 2.5 Mg Tablet, 2.5 MG PO PRN for MIGRAINE 04/07/19 Pantoprazole Sodium (PANTOPRAZOLE SODIUM) 40 Mg Tablet.dr, 40 MG PO BID, TAB.SR 04/07/19 Mometasone Furoate (NASONEX) 17 Gm [place], 17 GM BABAR QDAY, SPRAY 04/07/19 Cetirizine Hcl (ZYRTEC) 10 Mg Tablet, 10 MG PO QDAY, TAB 04/07/19 Cyclobenzaprine Hcl (CYCLOBENZAPRINE HCL) 10 Mg Tablet, 5 MG PO QHS, #9 TAB 04/07/19 Ropinirole Hcl (REQUIP XL) 4 Mg Tab.er.24h, 4 MG PO QDAY 04/07/19 Galcanezumab-Gnlm (Emgality) 120 Mg/Ml Pen.injctr, 1 SYR SUBQ Q4WK 12/29/18 Ranitidine Hcl (ZANTAC) 150 Mg Tablet, 150 MG PO HS, TAB 08/13/18 Gabapentin (GABAPENTIN) 300 Mg Capsule, 600 MG PO HS, CAPSULE 08/13/18 Magnesium Amino Acid Chelate (MAGNESIUM) 100 Mg Tablet, 250 MG PO 08/10/18 Cholecalciferol (Vitamin D3) (VITAMIN D) 2,000 Unit Capsule, 2000 UNIT PO DAILY, CAPSULE 12/02/14 Multivitamin (MULTI-VITAMIN DAILY) 1 Each Tablet, 1 EACH PO 11/16/14 Discontinued Scripts Ropinirole Hcl (ROPINIROLE HCL) 1 Mg Tablet, 1 MG PO TID, #270 TAB 3 Refills Prov:BRIDGETTE LUNA MD 10/06/18 Pantoprazole Sodium (PANTOPRAZOLE SODIUM) 40 Mg Tablet.dr, 1 TAB PO QDAY, #60 CAP 6 Refills Please take 1 tablet 1/2 hour before breakfast. Prov:BRIDGETTE LUNA MD 05/12/18 Past Medical/Surgical History Past Medical History Neurologic: Reports hx of: migraine (since college 1983) other neurologic history (acoustic neuroma in 2017, essential tremor.) Cardiovascular: Reports hx of: hyperlipidemia Respiratory: Reports hx of: sleep apnea (CPAP ( Home sleep study )for four months, diagnosed in thirties.) Gastrointestinal: Reports hx of: GERD (EGD in 11/11) Psychiatric: Reports hx of: anxiety depression (Age 41, first cheated and gave her STD, bad relationship with bosses.) Endocrine: Reports hx of: hypothyroidism Past Surgical History HEENT: Reports hx of: tonsillectomy Gastrointestinal: Reports hx of: appendectomy cholecystectomy Gynecologic: Reports hx of: hysterectomy Reviewed Nurses Notes: Yes Old Medical Records Reviewed: Yes Hx Smoking: No Smoking Status: Never Smoker Hx Substance Use Disorder: No Hx Alcohol Use: No Constitutional Vital Sign - Last 24 Hours 04/11/19 04/11/19 04/11/19 04/11/19 02:06 02:12 02:30 02:43 Temp 97.8 Pulse 113 83 Resp 18 B/P (MAP) 137/93 (108) 137/93 124/71 (88) Pulse Ox 93 90 O2 Delivery Room Air 04/11/19 04/11/19 04/11/19 02:48 03:12 03:45 Pulse 81 87 Resp 16 B/P (MAP) 116/63 (80) Pulse Ox 90 89 Physical Exam General Appearance: The patient is alert, has no immediate need for airway protection and no current signs of toxicity. Vital signs stable, mild tachycardia, afebrile, pulse ox normal HEENT: Pupils equal and round no injection. TMs normal, oropharynx with mild erythema, no exudate or petechiae Respiratory: Chest is non tender, lungs are clear to auscultation. No wheezing or rails Cardiac: regular rate and rhythm, no murmur Gastrointestinal: Abdomen is soft and non tender, no masses, bowel sounds normal. Musculoskeletal: Neck: Neck is supple and non tender. Extremities have full range of motion and are non tender. Skin: No rashes or lesions. DIFFERENTIAL DIAGNOSIS: After history and physical exam differential diagnosis was considered for shortness of breath including but not limited to pulmonary infectious process, COPD, asthma, pulmonary embolus, GERD, acid reflux, postnasal drip, allergies, sleep apnea and congestive heart failure. Medical Decision Making EKG/Imaging Imaging X-ray: Two-view chest x-ray was obtained. I viewed the images myself on the PACS system. My interpretation of the images is: No infiltrate, no effusion, chronic left basilar scarring, comparison to previous chest x-ray 03/31/19, no significant change. The radiologist interpretation had no clinically signific ant variation from this interpretation. ED Course/Re-evaluation ED Course Patient was admitted to an examination room. H&P was done. The differential diagnoses was considered. Patient with persistent coughing. She had a course of antibiotic without improvement. A chest x-rays performed tonight which is unchanged from her previous chest x-ray from nearly 2 weeks ago. Patient was treated with an DuoNeb and a Pulmicort neb. Patient reports significant improvement of her breathing She'll be treated with Ceftin antibiotic. Patient was dispensed an albuterol inhaler. She is advised to follow-up with her primary care or preop nurse early next week. Decision to Disposition Date: Apr 11, 2019 Decision to Disposition Time: 03:12 Depart Departure Latest Vital Signs Vital Signs Date Time Temp Pulse Resp B/P (MAP) Pulse Ox O2 Delivery O2 Flow Rate FiO2 04/11/19 03:45 116/63 (80) 89 04/11/19 03:12 87 16 6/16/19 02:12 97.8 Room Air Impression: Primary Impression: Persistent cough for 3 weeks or longer Additional Impressions: Allergic rhinitis GERD (gastroesophageal reflux disease) Bronchospasm Condition: Improved Disposition: HOME OR SELF-CARE Referrals: BRIDGETTE LUNA MD (PCP) New Scripts Cefuroxime Axetil (CEFUROXIME) 500 Mg Tablet 500 MG PO BID for infection, #14 TAB Prov: JAMES DAWKINS DO 04/11/19 Patient Instructions: Chronic Cough (ED) Additional Instructions: Follow-up with your primary care Dr Luna on Friday Problem Qualifiers Additional Impressions: Allergic rhinitis Allergic rhinitis trigger: unspecified Allergic rhinitis seasonality: unspecified Qualified Codes: J30.9 - Allergic rhinitis, unspecified GERD (gastroesophageal reflux disease) Esophagitis presence: esophagitis presence not specified Qualified Codes: K21.9 - Gastro-esophageal reflux disease without esophagitis JAMES DAWKINS DO Apr 11, 2019 02:26
[2019-04-11] MEDS ORDERED: BUDESONIDE 0.5 MG/2 ML NEB NEB ONE (02:50)
[2019-04-11] MEDS ORDERED: ALBUTEROL/IPRATROPIUM 3 ML NEB NEB ONE (02:50)
[2019-04-11] MEDS ORDERED: CEFU500T10 PO (03:14)
[2019-04-11] MEDS ORDERED: CEFUROXIME AXETIL 250 MG TAB PO ONE (03:15)
[2019-04-11] MEDS ORDERED: ONDANSETRON 4 MG/2 ML VIAL IVP ONE (03:20)
[2019-04-11] MEDS ORDERED: ALBUTEROL 8 GM INHALER INH ONE (03:20)
--- NOTE | 2019-04-11 03:22 | RADIOLOGY IMAGING REPORT ---
FACILITY: [facility] PATIENT NAME: Rosa M Espinoza : 1955 MR: [id number] V: [id number] EXAM DATE: ORDERING PHYSICIAN: JAMES DAWKINS TECHNOLOGIST: Location: [facility] Patient: Rosa M Espinoza : 1955 Visit/Account:[id number] Date of Sevice: 04/11/2019 2 VIEWS CHEST INDICATION: Cough COMPARISON: April 25, 2019 FINDINGS: Heart size within normal limits. There is no focal infiltrate or lobar consolidation. Left basilar scarring. There is no pneumothorax or pleural effusion. IMPRESSION: 1. No acute cardiopulmonary process. Report Dictated By: Ranjan Friend MD at 04/11/2019 3:11 AM Report E-Signed By: Ranjan Friend MD at 04/11/2019 3:12 AM WSN:[id number]
[2019-04-11 03:45] VITALS: BP 116/63
== END 2019-04-11 03:49 | disposition home or self-care (01) ==
LOC: ER 02:26
DX: R05 Cough (principal); J30.9 Allergic rhinitis, unspecified; K21.9 Gastro-esophageal reflux disease without esophagitis; J98.01 Acute bronchospasm
CPT/HCPCS: 71046; 94640; 99283; J7620; J7626

== ENCOUNTER 2019-04-13 00:29 | Inpatient (IN) | payer OTHER ==
[2019-03-29 08:35] LABS: PLATELET COUNT, AUTOMATED 214 K/uL (150-450)
--- NOTE | 2019-03-29 08:53 | EKG ---
FACILITY: [facility] [place] PATIENT NAME: LUANN WALLACE : [id number] MR: [id number] V: [id number] EXAM DATE: ORDERING PHYSICIAN: ABHISHEK HERNANDEZ TECHNOLOGIST: KIMMIE Bhardwaj Reason : PRE-OP KNEE Blood Pressure : / mmHG Vent. Rate : 078 BPM Atrial Rate : 078 BPM P-R Int : 178 ms QRS Dur : 078 ms QT Int : 398 ms P-R-T Axes : 068 060 050 degrees QTc Int : 453 ms Sinus rhythm No acute appearing findings Confirmed by CLYDE WATKINS ([id number]) on 03/29/2019 8:12:18 PM Referred By: MARY Confirmed By:CLYDE WATKINS
--- NOTE | 2019-04-12 12:09 | LEVENE H&P ---
DATE OF ADMISSION: April 13, 2019 IDENTIFICATION/CHIEF COMPLAINT The patient is a 63-year-old woman with a chief complaint of left knee pain. HISTORY OF PRESENT ILLNESS The patient has a long-standing history of left knee arthritis, progressively painful and debilitating, refractory to extensive conservative care. Surgery is indicated to relieve symptoms after failure of nonoperative measures. PAST MEDICAL HISTORY 1. History of sleep apnea with consistent use of CPAP. She uses night-time oxygen. 2. Hypothyroidism. 3. Migraine headaches. 4. Acid reflux disease. 5. Neck and back problems. PAST SURGICAL HISTORY 1. Cholecystectomy. 2. Hysterectomy. 3. Left elbow surgery. ALLERGIES Codeine which causes migraines and Zofran. CURRENT MEDICATIONS 1. Topamax 100 mg p.o. q. day. 2. Requip 1 mg t.i.d. 3. Celebrex 200 mg p.o. q day. 4. Duloxetine 60 mg p.o. q. day. 5. Gabapentin 600 mg p.o. q. nightly. 6. Lasix 20 mg p.o. q day. 7. Levothyroxine 25 mcg per day. FAMILY HISTORY Negative. SOCIAL HISTORY Negative for tobacco and alcohol use. REVIEW OF SYSTEMS Unremarkable. PHYSICAL EXAMINATION GENERAL: This is a healthy woman appears stated age. HEENT: Normocephalic, atraumatic. Extraocular muscles intact. NECK: Supple, non-tender. LUNGS: Clear to auscultation bilaterally. HEART: Regular rate and rhythm. ABDOMEN: Benign. ORTHOPEDIC EXAMINATION Left knee has an effusion present. She has pain with patellar compression and at the lateral joint line. The knee is grossly stable. Motion is relatively supple with painful at the end-range. Extensor function is intact. Stability is good. RADIOGRAPHS Demonstrate patellofemoral and lateral compartment degenerative changes. MRI demonstrates some of these areas extend to bone. ASSESSMENT Left knee degenerative joint disease progressively painful and debilitating, refractory to conservative care. PLAN Discussed the options with the patient including ongoing conservative care which would remain safe and reasonable versus the option of surgical intervention. She would like to proceed with total knee replacement. The nature of the procedure, the risks, benefits, the anticipated rehabilitative course were reviewed. Risks include but are not limited to , major medical or anesthetic complication, infection, neurovascular injury, blood transfusion, stiffness, scarring, fracture, tendon rupture, implant loosening, migration or failure, persistent or recurrent pain or symptoms, need for additional surgery and other unforeseen. She understands and wishes to proceed. A signed permit is placed in the chart. All questions are answered. No guarantees are given or implied. RUDDY
[2019-04-12 15:28] LABS: INR 0.89
[2019-04-13] VITALS (13 sets, daily range): BP systolic 83–129; BP diastolic 52–95
[~2019-04-13] VITALS: Ht 167.6 cm; Wt 106.1 kg
[~2019-04-13 00:29] MED LIST changes: +CEFU500T10 PO
[2019-04-13] MEDS ORDERED: ONDANSETRON 4 MG/2 ML VIAL ONE (10:28)
[2019-04-13] MEDS ORDERED: PROPOFOL EMUL(*) 10MG/ML 20 ML 20 ML ONE (10:28)
[2019-04-13] MEDS ORDERED: fentaNYL CITR 100 MCG/2 ML AMP ONE (10:28)
[2019-04-13] MEDS ORDERED: DEXAMETHASONE SOD 4 MG/ML VIAL ONE (10:28)
[2019-04-13] MEDS ORDERED: LIDOCAINE MPF 1% 5 ML VIAL ONE (10:28)
[2019-04-13] MEDS ORDERED: KETAMINE HCL 200 MG/20 ML MDV ONE (10:29)
[2019-04-13] MEDS ORDERED: LIDOCAINE/SOD BICARB 8.4% SYR ID ONE (11:15)
[2019-04-13] MEDS ORDERED: ceFAZolin(*) 2GM/D5W 50ML 50 ML IVPB ONE (11:15)
[2019-04-13] MEDS ORDERED: TRANEXAMIC AC 1000 MG/10ML SDV 1,000 MG in DEXTROSE 5% 50 ML BAG 50 ML IV ONE (11:15)
[2019-04-13] MEDS ORDERED: ROPIVACAINE/EPI/CLONIDINE/KET 50 ML SYRINGE INJ ONE (11:15)
[2019-04-13] MEDS ORDERED: NORMOSOL R SOLN(*) 1000 ML BAG 1,000 ML IV PRN ×2 (11:15→16:10)
[2019-04-13] MEDS ORDERED: MIDAZOLAM 2 MG/2 ML VIAL IVP PRN (11:15)
[2019-04-13] MEDS ORDERED: ACETAMINOPHEN 500 MG TAB PO ONE (11:15)
[2019-04-13] MEDS ORDERED: PREGABALIN 150 MG CAPSULE PO ONE (11:15)
[2019-04-13] MEDS ORDERED: PHENYLEPHRINE 10 MG/1 ML VIAL ONE (12:59)
[2019-04-13] MEDS ORDERED: ePHEDrine 25 MG/5 ML DISP.SYR IVP ONE (13:32)
[2019-04-13] MEDS ORDERED: GLYCOPYRROLATE 0.2MG/ML 1 ML INJ ONE (13:32)
[2019-04-13] MEDS ORDERED: LACTATED RINGER 3000 ML BAG IR ONE (13:53)
[2019-04-13] MEDS ORDERED: WATER STERILE FOR IRRIG 1000ML IR ONE (13:54)
[2019-04-13] MEDS ORDERED: NS 0.9% IRRIGATION 1000ML PLCT IR ONE (13:54)
[2019-04-13] MEDS ORDERED: BISACODYL 10 MG SUPP PR PRN (16:10)
[2019-04-13] MEDS ORDERED: PROMETHAZINE 25 MG/ML 1 ML AMP IVP PRN (16:10)
[2019-04-13] MEDS ORDERED: diphenhydrAMINE 50 MG/ML VIAL IVP PRN (16:10)
[2019-04-13] MEDS ORDERED: APAP/HYDROCODONE 325/7.5 TAB PO PRN (16:10)
[2019-04-13] MEDS ORDERED: diphenhydrAMINE 25 MG CAP PO PRN (16:10)
[2019-04-13] MEDS ORDERED: FLUSH 10 ML SYR IVP PRN (16:10)
[2019-04-13] MEDS ORDERED: MAGNESIUM HYDROXIDE* 30ML UDCP PO PRN (16:10)
[2019-04-13] MEDS ORDERED: ACETAMINOPHEN 325 MG TAB PO PRN (16:10)
[2019-04-13] MEDS ORDERED: ZOLPIDEM TARTRATE 5 MG TAB PO PRN (16:10)
[2019-04-13] MEDS ORDERED: BENZOCAINE/MENTHOL 1 EACH LOZG PO PRN (16:10)
--- NOTE | 2019-04-13 16:20 | OPERATIVE REPORT 1 ---
EVENT DATE: April 13, 2019 SURGEON: Wild Lowery MD ANESTHESIOLOGIST: Dennis Garces MD ANESTHESIA: General plus spinal. ACT ENGLISH TUTOR: FRANSICO Thompson, MASTER CONTROL OPERATOR PREOPERATIVE DIAGNOSIS Left knee degenerative joint disease. POSTOPERATIVE DIAGNOSIS Left knee degenerative joint disease. PROCEDURE PERFORMED Left total knee arthroplasty. ESTIMATED BLOOD LOSS Minimal. DRAINS None. SPECIMENS None. COMPLICATIONS None apparent. TOURNIQUET TIME 53 minutes. IMPLANTS USED Bhupendra Triathlon knee system, a 3 left PS femur, a 3 standard tibial baseplate, a 29 mm universal symmetric all polyethylene patella button and a 16 mm PS tibial tray, polyethylene X3. INDICATIONS The patient is 63-year-old woman with intractable pain related to knee arthritis. She has had extensive conservative care. Surgery is indicated to relieve symptoms after failure of nonoperative measures. DESCRIPTION OF PROCEDURE The patient was taken to the operating room and placed supine on the operating table. General anesthesia was induced after spinal block was administered by the anesthesiologist. Antibiotics and TXA were administered IV. The left lower extremity was prepped and draped in the usual sterile fashion for orthopedic surgery. The limb was exsanguinated with an Esmarch bandage. The tourniquet was inflated to 300 mmHg. A midline longitudinal incision was made and carried down through the skin and subcutaneous tissue to the extensor mechanism. A full-thickness flap was developed far enough medially to allow medial parapatellar arthrotomy to be performed. The patella was everted. The knee was brought into a flexed position. The fat pad, anterior horns of the menisci and cruciate ligaments were debrided. Subperiosteal capsular release was performed circumferentially 1 cm around the upper plateau. A step drill was used to enter the distal femur. A 10-inch long alignment guide was used to engage the isthmus. Cut was set for 6 degrees of valgus relative to anatomic axis. A 10 mm resection block was applied and pinned. Cut was made with an oscillating saw. The AP sizing guide was applied to the distal femoral cut and positioned for 3 degrees of external rotation relative to the posterior condyles. A size 3 was optimal without risk of notching. The four-in-one cutting block was applied. Anterior, posterior, posterior chamfer and anterior chamfer cuts were made respectively. A PS block was applied and centered mediolateral and the bone was removed from the box. The trial femur has nice [id number] fit. Attention was turned to tibial preparation. The extramedullary guide was applied and positioned for varus, valgus, posterior slope and rotation. This was set to resect 2 from the relatively deficient lateral tibial plateau. It was dropped down another couple of millimeters to ensure an adequate cut. The block was pinned. Extramedullary alignment check was made and the cut was made with an oscillating saw. After removing spurs and posterior debris, the gaps were balanced and symmetric with no further releases required. The 3 baseplate provides optimal coverage without soft tissue overhang. This was inserted along with a trial liner and trial femur. The knee was brought to extension. The patella was taken from a starting thickness of 18 mm to a residual of 14 with a free hand cut. The 29 provides optimal bony coverage without soft tissue overhang. Lug holes were drilled. The patella tracts nicely with a no-touch technique. Final tibial preparation consisted of ensuring appropriate rotational and translational position of the component. The box was reamed and the fin was punched. Surfaces were lavaged. A mix of polymethylmethacrylate was made and the components were cemented in a single stage. Once the cement was fully polymerized, the tourniquet was deflated and hemostasis was assured. The wounds were copiously lavaged to remove all loose debris. The 16 PS liner fills up the gap ideally, allowing the knee to drop to full extension without hyperextension, providing optimal soft tissue tension and stability. Tray was lavaged and dried and the actual liner was locked into the baseplate. Joint was reduced. The arthrotomy was closed in flexion with #2 Ethibond, subcutaneous tissue with 3-0 Vicryl and the skin with ZipLine closure. Xeroform was applied followed by a dry, sterile dressing and a compression wrap. The patient was awakened from the anesthesia and taken to the recovery room in stable condition, having tolerated the procedure well. Plan is for standard TKA rehab protocol. [facility]
[2019-04-13] MEDS ORDERED: RANITIDINE HCL 150 MG TAB PO PRN (16:35)
--- NOTE | 2019-04-13 16:44 | Hospitalist Consultation ---
History of Present Illness Requesting Physician Dr. Lowery Reason for Consult Medical Management Chief Complaint s/p left knee replacement History of Present Illness She was admitted s/p left knee replacement. It is reported the surgery went well and without complication. History Problems: (1) GERD (gastroesophageal reflux disease) Status: Chronic (2) Restless legs syndrome (RLS) Status: Chronic (3) Hyperlipidemia Status: Chronic (4) Hypothyroidism Status: Chronic (5) SAUMYA on CPAP Status: Chronic (6) Migraine headache Status: Chronic Home Meds Active Scripts Cefuroxime Axetil (CEFUROXIME) 500 Mg Tablet, 500 MG PO BID for infection, #14 TAB Prov:JAMES DAWKINS DO 04/11/19 Levothyroxine Sodium (LEVOTHYROXINE SODIUM) 50 Mcg Tablet, 50 MCG PO QDAY, #45 TAB 0 Refills Prov:BRIDGETTE YI MD 03/29/19 Furosemide (FUROSEMIDE) 20 Mg Tablet, 1 TAB PO DAILY, #90 TAB 2 Refills Prov:BRIDGETTE YI MD 03/09/19 Potassium Chloride (POTASSIUM CHLORIDE) 10 Meq Tab.er.prt, 10 MEQ PO QDAY for edema, #30 TAB 5 Refills Prov:BRIDGETTE YI MD 03/03/19 Duloxetine HCl (Duloxetine HCl) 60 Mg Capsule., 1 CAP PO DAILY, #90 TAB 1 Refill Prov:BRIDGETTE YI MD 11/06/18 Celecoxib (CELEBREX) 200 Mg Capsule, 200 MG PO QDAY for 90 Days, #90 CAPSULE 3 Refills Prov:BRIDGETTE YI MD 10/22/18 Topiramate (TOPAMAX) 100 Mg Tablet, 100 MG PO DAILY, #90 TAB 3 Refills Prov:BRIDGETTE YI MD 10/22/17 Ranitidine Hcl (ZANTAC) 150 Mg Tablet, 150 MG PO BID PRN for REFLUX, #60 TAB 3 Refills Prov:KENDRA RINCON MD 04/09/16 Reported Medications Frovatriptan Succinate (FROVA) 2.5 Mg Tablet, 2.5 MG PO PRN for MIGRAINE 04/07/19 Pantoprazole Sodium (PANTOPRAZOLE SODIUM) 40 Mg Tablet., 40 MG PO BID, TAB.SR 04/07/19 Mometasone Furoate (NASONEX) 17 Gm [place], 17 GM BABAR QDAY, SPRAY 04/07/19 Cetirizine Hcl (ZYRTEC) 10 Mg Tablet, 10 MG PO QDAY, TAB 04/07/19 Cyclobenzaprine Hcl (CYCLOBENZAPRINE HCL) 10 Mg Tablet, 5 MG PO QHS, #9 TAB 04/07/19 Ropinirole Hcl (REQUIP XL) 4 Mg Tab.er.24h, 4 MG PO QDAY 04/07/19 Galcanezumab-Gnlm (Emgality) 120 Mg/Ml Pen.injctr, 1 SYR SUBQ Q4WK 12/29/18 Ranitidine Hcl (ZANTAC) 150 Mg Tablet, 150 MG PO HS, TAB 08/13/18 Gabapentin (GABAPENTIN) 300 Mg Capsule, 600 MG PO HS, CAPSULE 08/13/18 Magnesium Amino Acid Chelate (MAGNESIUM) 100 Mg Tablet, 250 MG PO 08/10/18 Cholecalciferol (Vitamin D3) (VITAMIN D) 2,000 Unit Capsule, 2000 UNIT PO DAILY, CAPSULE 12/02/14 Multivitamin (MULTI-VITAMIN DAILY) 1 Each Tablet, 1 EACH PO 11/16/14 Discontinued Scripts Estrogens, Conjugated (Premarin) 0.625 Mg/Gram Cream.appl, 0.5 GM PV DIRECTED for 30 Days, #1 TUBE 6 Refills 0.5 gram PV QHS for 2 weeks then 2 times per week thereafter Prov:SERJIO TEAGUE MD 07/09/18 Ropinirole Hcl (ROPINIROLE HCL) 1 Mg Tablet, 1 MG PO TID, #270 TAB 3 Refills Prov:BRIDGETTE YI MD 10/06/18 Pantoprazole Sodium (PANTOPRAZOLE SODIUM) 40 Mg Tablet.dr, 1 TAB PO QDAY, #60 CAP 6 Refills Please take 1 tablet 1/2 hour before breakfast. Prov:BRIDGETTE YI MD 05/12/18 Allergies: Coded Allergies: levetiracetam (Verified Allergy, Intermediate, Rash, 04/11/19) tree and shrub pollen (Verified Allergy, Unknown, 04/11/19) weed pollen (Verified Allergy, Unknown, 04/11/19) metoclopramide (Verified Adverse Reaction, Severe, Shaking, 04/11/19) clonazepam (Verified Adverse Reaction, Intermediate, Zombie, 04/11/19) hydrochlorothiazide (Verified Adverse Reaction, Intermediate, Severe hypokalemia, 04/11/19) Patient History: Diabetes mellitus (DM) GM1 FH: HTN (hypertension) GM1 FH: cancer GF Hx Smoking: No Smoking Status: Never Smoker Caffeine Intake: Coffee Caffeine/Cups Per Day: 2/DAY Hx Alcohol Use: No Hx Substance Use Disorder: No Social Drug Use: Never History of IV Drug Use: No Review of Systems All Systems Reviewed/Normal: Yes, Except as Noted Exam Vital Signs Vital Signs Date Time Temp Pulse Resp B/P (MAP) Pulse Ox O2 Delivery O2 Flow Rate FiO2 04/13/19 16:21 97.1 16 92/58 (69) 96 Nasal Cannula 2.0 04/13/19 15:45 87 General Appearance: Alert, Awake, No Acute Distress, Afebrile Neuro: No Gross deficits Cardiovascular: Regular Rate and Rhythm Respiratory: No Respiratory Distress, Clear to Auscultation GI: Abd Soft and Non-Tender Psych: Alert & Oriented X3, Appropriate Mood & Affect Assessment and Plan Problems: (1) Status post left knee replacement Status: Acute Assessment & Plan: Followed by Dr. Lowery. She will be placed on Aspirin for DVT prophylaxis. (2) Hypothyroidism Status: Chronic Assessment & Plan: Continue chronic Levothyroxine. (3) SAUMYA on CPAP Status: Chronic Assessment & Plan: Continue chronic CPAP. (4) Restless legs syndrome (RLS) Status: Chronic Assessment & Plan: Continue chronic Requip. (5) GERD (gastroesophageal reflux disease) Status: Chronic Assessment & Plan: Continue chronic Protonix and Ranitidine. (6) Migraine headache Status: Chronic Assessment & Plan: Continue chronic Topamax. She also is on chronic treatment Frova and Emgality injections monthly. Venous Thromboembolism Antithrombotics Is Pt On Any Antithrombotics?: No SHAYY ORONA RETAIL PLANNING MANAGER Apr 13, 2019 16:44
[2019-04-13] MEDS: CELECOXIB 200 MG CAP PO SCH (17:32)
[2019-04-13] MEDS: oxyCODON/ACET (*)5/325MG (CII) 1 TAB TAB PO PRN (17:33)
--- NOTE | 2019-04-13 17:41 | RADIOLOGY IMAGING REPORT ---
FACILITY: [facility] PATIENT NAME: Rosa M Espinoza : 1955 MR: [id number] V: [id number] EXAM DATE: ORDERING PHYSICIAN: ABHISHEK HERNANDEZ TECHNOLOGIST: Location: [facility] Patient: Rosa M Espinoza : 1955 Visit/Account:[id number] Date of Sevice: 04/13/2019 KNEE LIMITED LEFT HISTORY: Post TKA ADDITIONAL HISTORY: None. COMPARISON: 08/25/2014 FINDINGS: 2 views were obtained of the left knee. Since the prior study, left knee prosthesis has been placed w ith anatomic alignment of the components. Patellar component is also in alignment. There is no fractu re. Bony mineralization is normal. Air is present in the soft tissues. There is no radiopaque foreign body. IMPRESSION: Patient status post left TKA with anatomic alignment of the components. There is no radiographic evid ence of an acute complication. Report Dictated By: Alix Winkler MD at 04/13/2019 5:33 PM Report E-Signed By: Alix Winkler MD at 04/13/2019 5:34 PM WSN:[id number]
[2019-04-13] MEDS: DIAZEPAM 5 MG TAB PO PRN (20:19)
[2019-04-13] MEDS ORDERED: NS(*) 0.9% 500 ML BAG 500 ML ONE (21:04)
[2019-04-13] MEDS: GABAPENTIN 300 MG CAP PO SCH (21:09)
[2019-04-13] MEDS: RANITIDINE HCL 150 MG TAB PO SCH (21:09)
[2019-04-13] MEDS: TOPIRAMATE 100 MG TAB PO SCH (21:09)
[2019-04-13] MEDS: PANTOPRAZOLE SOD 40 MG TABEC PO SCH (21:10)
[2019-04-13] MEDS: ceFAZolin(*) 1 GM VIAL 1 GM in NS(*) 0.9% 100 ML MINI-BAG 100 ML IVPB SCH (21:10)
[2019-04-14] MEDS: oxyCODON/ACET (*)5/325MG (CII) 1 TAB TAB PO PRN ×5 (00:11→22:26)
[2019-04-14] MEDS: DIAZEPAM 5 MG TAB PO PRN ×3 (02:21→23:22)
[2019-04-14 04:12] VITALS: BP 94/54
[2019-04-14] MEDS: ceFAZolin(*) 1 GM VIAL 1 GM in NS(*) 0.9% 100 ML MINI-BAG 100 ML IVPB SCH ×2 (04:33→12:20)
[2019-04-14] MEDS: LEVOTHYROXINE SOD 0.05 MG TAB PO SCH (07:08)
[2019-04-14 07:46] VITALS: BP 99/56
[2019-04-14] MEDS: CELECOXIB 200 MG CAP PO SCH ×2 (08:09→17:01)
[2019-04-14] MEDS: DULoxetine HCL 30 MG CAPCR PO SCH (08:18)
[2019-04-14] MEDS: ASPIRIN 325 MG TAB PO SCH (08:18)
[2019-04-14] MEDS: rOPINIRole HCL 4 MG TAB PO SCH (08:18)
[2019-04-14] MEDS: PANTOPRAZOLE SOD 40 MG TABEC PO SCH ×2 (08:18→20:47)
[2019-04-14] MEDS: MOMETASONE FUR ENA SCH (08:21)
[2019-04-14 08:33] VITALS: Ht 167.6 cm; Wt 106.1 kg
--- NOTE | 2019-04-14 10:12 | Hospitalist Progress Note ---
Subjective Progress Notes Subjective She was admitted s/p knee replacement. She had no acute events overnight. Patient Complains of: Cardiovascular: No: Chest Pain Respiratory: No: Shortness of Breath Physical Exam Vital Signs Date Time Temp Pulse Resp B/P (MAP) Pulse Ox O2 Delivery O2 Flow Rate FiO2 04/14/19 08:08 85 04/14/19 07:56 Nasal Cannula 1.0 04/14/19 07:46 97.0 72 16 99/56 (70) Intake and Output 04/14/19 07:01 Intake Total 2250 ml Balance 2250 ml Intake Oral 350 ml IV Total 1900 ml # Voids 1 # Bowel Movements 0 General Appearance: Alert, Awake, No Acute Distress, Afebrile Neuro: No Gross deficits Cardiovascular: Regular Rate and Rhythm Respiratory: No Respiratory Distress, Clear to Auscultation Psych: Alert & Oriented X3, Appropriate Mood & Affect Assessment and Plan Problems: (1) Status post left knee replacement Status: Acute Assessment & Plan: Followed by Dr. Lowery. She will be placed on Aspirin for DVT prophylaxis. (2) Hypothyroidism Status: Chronic Assessment & Plan: Continue chronic Levothyroxine. (3) SAUMYA on CPAP Status: Chronic Assessment & Plan: Continue chronic CPAP. (4) Restless legs syndrome (RLS) Status: Chronic Assessment & Plan: Continue chronic Requip. (5) GERD (gastroesophageal reflux disease) Status: Chronic Assessment & Plan: Continue chronic Protonix and Ranitidine. (6) Migraine headache Status: Chronic Assessment & Plan: Continue chronic Topamax. She also is on chronic treatment Frova and Emgality injections monthly. Exam Sepsis Risk: No Definite Risk SHAYY ORONA SHANK INSPECTOR Apr 14, 2019 10:12
--- NOTE | 2019-04-14 11:15 | NUR ---
Physical Therapy Impression PT eval completed. Pt tolerated ambulation x 150' with FWW and SBA/CGA. Pt is SBA for bed mobility and CGA for transfers overall. Pt provided with education regarding self progression of flexion with CPM as tolerated. Physical Therapy Goals 1. Pt to be SBA/Mod indep with sup<>sit trnsfrs 2. Pt to be SBA/Mod Indep with sit <>stand transfers 3. Pt to be SBA/Mod Indep for ambulation with least restrictive device x 150' 4. Pt to bertha up/down platform step x 2 with FWW and CGA Patient's Goals
[2019-04-14 11:17] VITALS: BP 99/57
[2019-04-14 14:53] VITALS: BP 90/69
--- NOTE | 2019-04-14 16:50 | NUR ---
Physical Therapy Impression Pt is Mod indep/SBA for bed mobility, and supine to/from sit as well as sit to/from stand transfers. Pt completed ambulation in hallway and up/down platform step x 2 reps with CGA provided by , as pt has no rails for stairs to access home. Pt tolerated this activity well, despite drowsiness possibly related to medication. Pt also notes that she feels that she has to strain to empty her bladder and this information was passed on to nursing in [facility] at end of session, as well as pt's request to have a cryocuff unit for use at home. Physical Therapy Goals 1. Pt to be SBA/Mod indep with sup<>sit trnsfrs 2. Pt to be SBA/Mod Indep with sit <>stand transfers 3. Pt to be SBA/Mod Indep for ambulation with least restrictive device x 150' 4. Pt to bertha up/down platform step x 2 with FWW and CGA Patient's Goals
[2019-04-14 18:51] VITALS: BP 89/53
[2019-04-14] MEDS: TOPIRAMATE 100 MG TAB PO SCH (20:47)
[2019-04-14] MEDS: GABAPENTIN 300 MG CAP PO SCH (20:48)
[2019-04-14] MEDS: RANITIDINE HCL 150 MG TAB PO SCH (20:48)
[2019-04-14 23:49] VITALS: BP 92/60
[2019-04-15] MEDS: oxyCODON/ACET (*)5/325MG (CII) 1 TAB TAB PO PRN ×2 (02:39→09:39)
[2019-04-15 02:41] VITALS: BP 101/57
[2019-04-15] MEDS: DIAZEPAM 5 MG TAB PO PRN (05:49)
[2019-04-15] MEDS: LEVOTHYROXINE SOD 0.05 MG TAB PO SCH (05:49)
[2019-04-15 07:01] VITALS: BP 91/56
[2019-04-15] MEDS: ASPIRIN 325 MG TAB PO SCH (08:25)
[2019-04-15] MEDS: CELECOXIB 200 MG CAP PO SCH (08:25)
[2019-04-15] MEDS: PANTOPRAZOLE SOD 40 MG TABEC PO SCH (08:25)
[2019-04-15] MEDS: rOPINIRole HCL 4 MG TAB PO SCH (08:25)
[2019-04-15] MEDS: MOMETASONE FUR ENA SCH (08:26)
[2019-04-15] MEDS: DULoxetine HCL 30 MG CAPCR PO SCH (08:26)
[2019-04-15] MEDS ORDERED: FURO-45 PO (08:27)
[2019-04-15] MEDS ORDERED: ASPI-757 PO (08:27)
--- NOTE | 2019-04-15 08:54 | NUR ---
Physical Therapy Impression Patient presents in room and is agreeable to therapy. Patient reports she is having quite a bit more pain today and nursing is aware. Patient was mod I with bed mobility but very slow. Patient was mod I with transfers. Patient was shown how to change the settings on her CPM and was able to do this with cuing. Patients CPM was set 0-40. Patient instructed in there ex including ankle pumps, quad and glute sets, and heel slides. Patient instructed in gait training with FWW ~150 feet with CGA and 2L of oxygen with therapist assist for oxygen tank and for safety and cuing to increase jaimie and for step through gait. Physical Therapy Goals 1. Pt to be SBA/Mod indep with sup<>sit trnsfrs 2. Pt to be SBA/Mod Indep with sit <>stand transfers 3. Pt to be SBA/Mod Indep for ambulation with least restrictive device x 150' 4. Pt to bertha up/down platform step x 2 with FWW and CGA Patient's Goals
[2019-04-15] MEDS ORDERED: LORATADINE 10 MG TAB PO SCH (09:00)
[2019-04-15] MEDS ORDERED: guaiFENesin 600 MG TABCR PO SCH (09:00)
[2019-04-15] MEDS ORDERED: TAMSULOSIN HCL 0.4 MG CAP PO SCH (09:05)
--- NOTE | 2019-04-15 10:30 | NUR ---
Patient will be discharged this am. The importance of continuous oxygen therapy thoroughly explained to the patient. Her oxygen saturations drop down into the low 60's, and she appears to become confused and lethargic when off oxygen. She agreed to wear her oxygen at all times.
--- NOTE | 2019-04-15 10:36 | Hospitalist Progress Note ---
Subjective Progress Notes Subjective She was admitted s/p knee replacement. She had no acute events overnight. Patient Complains of: Cardiovascular: No: Chest Pain Respiratory: No: Shortness of Breath Physical Exam Vital Signs Date Time Temp Pulse Resp B/P (MAP) Pulse Ox O2 Delivery O2 Flow Rate FiO2 04/15/19 07:05 95 Nasal Cannula 1.0 04/15/19 07:01 97.9 82 15 91/56 (68) Intake and Output 04/15/19 07:01 Intake Total 690 ml Balance 690 ml Intake Oral 590 ml IV Total 100 ml # Voids 1 General Appearance: Alert, Awake, No Acute Distress, Afebrile Neuro: No Gross deficits Cardiovascular: Regular Rate and Rhythm Respiratory: No Respiratory Distress, Clear to Auscultation Psych: Alert & Oriented X3, Appropriate Mood & Affect Assessment and Plan Problems: (1) Status post left knee replacement Status: Acute Assessment & Plan: Followed by Dr. Lowery. She will be placed on Aspirin for DVT prophylaxis. (2) Hypothyroidism Status: Chronic Assessment & Plan: Continue chronic Levothyroxine. (3) SAUMYA on CPAP Status: Chronic Assessment & Plan: Continue chronic CPAP. (4) Restless legs syndrome (RLS) Status: Chronic Assessment & Plan: Continue chronic Requip. (5) GERD (gastroesophageal reflux disease) Status: Chronic Assessment & Plan: Continue chronic Protonix and Ranitidine. (6) Migraine headache Status: Chronic Assessment & Plan: Continue chronic Topamax. She also is on chronic treatment Frova and Emgality injections monthly. (7) Urinary retention Status: Acute Assessment & Plan: She was placed on Flomax. Continue to monitor. Exam Sepsis Risk: No Definite Risk SHAYY ORONA PLATFORM POWER TECHNICIAN Apr 15, 2019 10:36
== END 2019-04-15 11:25 | disposition home or self-care (01) | DRG 470 ==
LOC: OR 00:29 → MED 16:15
PROVIDERS: ADMIT Orthopaedic Surgery; ATTEND Orthopaedic Surgery
PROC: 0SRD0J9 Replacement of Left Knee Joint with Synthetic Substitute, Cemented, Open Approach (ICD-10-PCS; principal; 2019-04-13 12:59)
DX: M17.12 Unilateral primary osteoarthritis, left knee (principal); E03.9 Hypothyroidism, unspecified; G43.909 Migraine, unspecified, not intractable, without status migrainosus; K21.9 Gastro-esophageal reflux disease without esophagitis; E78.5 Hyperlipidemia, unspecified; G25.81 Restless legs syndrome; G47.33 Obstructive sleep apnea (adult) (pediatric); R33.9 Retention of urine, unspecified; Z99.89 Dependence on other enabling machines and devices; Z99.81 Dependence on supplemental oxygen; Z88.5 Allergy status to narcotic agent; Z79.899 Other long term (current) drug therapy; Z88.8 Allergy status to other drugs, medicaments and biological substances
CPT/HCPCS: 36415; 81001; 82040; 82247; 82310; 82374; 82435; 82565; 82947; 84075; 84132; 84155; 84295; 84443; 84450; 84460; 84520; 85025; 85610; 86850; 86900; 86901; 93005; 97161; C1713; C1776; J0690; J1100; J2001; J2250; J2370; J2405; J2704; J3010; J3490; J7040; J7060

== ENCOUNTER → 2019-04-20 | Outpatient (CLI) | payer OTHER ==
[2019-04-14 08:33] VITALS: BMI 37.8
[~2019-04-20] MED LIST changes: +APIX5TAB PO; +ASPI-757 PO
== END ==
LOC: LAB 10:43
PROVIDERS: ATTEND Emergency Medicine
DX: R09.02 Hypoxemia (principal)

== ENCOUNTER → 2019-04-21 | Outpatient (CLI) | payer OTHER ==
[2019-04-14 08:33] VITALS: BMI 37.8
[~2019-04-21] MED LIST changes: +IOPAMIDOL 76% 100 ML INFUS BTL 100 ML ONE; +NS(*) 0.9% 50 ML BAG 50 ML ONE
--- NOTE | 2019-04-21 16:32 | RADIOLOGY IMAGING REPORT ---
FACILITY: [facility] PATIENT NAME: Rosa M Espinoza : 1955 MR: [id number] V: [id number] EXAM DATE: ORDERING PHYSICIAN: BRIDGETTE YI TECHNOLOGIST: Location: [facility] Patient: Rosa M Espinoza : 1955 Visit/Account:[id number] Date of Sevice: 04/21/2019 CT CTA CHEST W & W/O CON HISTORY: Elevated d-dimer and hypoxia ADDITIONAL HISTORY: None. TECHNIQUE: CTA chest with intravenous contrast. Axial imaging acquired following administration of IV contrast timed for maximum opacification of the pulmonary arterial vasculature. Slab 3-D MIP aubrie nstructed images were also created for further evaluation and interpretation. Reconstruction of the [facility] data set includes multiplanar 2-D in the sagittal and coronal planes and 3-D reconstructed otto nal slab MIP series. 3-D images were created by the technologist.Dose Lowering Technique One of the following dose optimization techniques was utilized in the performance of this exam: Autom ated exposure control; adjustment of the mA and/or kV according to the patient's size; or use of an i terative reconstruction technique. Specific details can be referenced in the facility's radiology C T exam operational policy. CONTRAST: 75 mL Isovue-370 COMPARISON: December 17, 2017 FINDINGS: Lungs/pleura: Linear scarring in the right lung base remains unchanged. There is increasing airspac e consolidation in the left lower lobe which could represent a developing pulmonary infarct Heart/vessels: There is a small volume of pulmonary emboli in the subsegmental arterial branches to t he right upper lobe. There is a moderate volume of pulmonary emboli in the segmental and subsegmenta l arterial branches to the left lower lobe. Mediastinum/lymph nodes: There has been development of a 3.2 x 1.9 x 1.8 cm ovoid fluid density proj ecting just anterior to the right atrium not present previously and may represent pericardial cyst. There is a 1.8 x 1 cm subcarinal lymph node and a 1.2 x 1 cm left hilar lymph node Visualized upper abdomen: There is a moderate size hiatal hernia. The postsurgical changes from a c holecystectomy Bones/soft tissues: Scoliosis of the thoracic spine Additional findings: None IMPRESSION: There is a small volume of pulmonary emboli in the subsegmental arterial branches to the right upper lobe and a moderate volume of pulmonary emboli in segmental and subsegmental arterial branches to the left lower lobe. There is increasing airspace consolidation in the left lower lobe which may repres ent developing pulmonary infarct There is been development of a 3.2 x 1.9 x 1.8 cm ovoid fluid density projecting just anterior to the right atrium which may represent pericardial cyst Nonspecific mediastinal lymph nodes Moderate size hiatal hernia Results were called to BRIDGETTE YI at 04/21/2019 4:26 PM. Report Dictated By: Miguelina Pereira MD at 04/21/2019 4:12 PM Report E-Signed By: Miguelina Pereira MD at 04/21/2019 4:26 PM WSN:[id number]
== END ==
LOC: CT 15:22
PROVIDERS: ATTEND Emergency Medicine
DX: I26.99 Other pulmonary embolism without acute cor pulmonale (principal); K44.9 Diaphragmatic hernia without obstruction or gangrene
CPT/HCPCS: 71275; J7050; Q9967

== ENCOUNTER → 2019-04-21 | Outpatient (CLI) | payer OTHER ==
[2019-04-14 08:33] VITALS: BMI 37.8
[~2019-04-21] MED LIST changes: -IOPAMIDOL 76% 100 ML INFUS BTL 100 ML ONE; -NS(*) 0.9% 50 ML BAG 50 ML ONE
== END ==
LOC: LAB 12:45
PROVIDERS: ATTEND Emergency Medicine
DX: R09.02 Hypoxemia (principal)
CPT/HCPCS: 36415; 82310; 82374; 82435; 82565; 82947; 84132; 84295; 84520; 85379

== ENCOUNTER → 2019-04-28 | Outpatient (CLI) | payer OTHER ==
[2019-04-14 08:33] VITALS: BMI 37.8
--- NOTE | 2019-04-29 09:37 | EKG ---
FACILITY: PATIENT NAME: LUANN WALLACE : [id number] MR: [id number] V: [id number] EXAM DATE: ORDERING PHYSICIAN: BRIDGETTE YI TECHNOLOGIST: JARRED RUSSELL Test Reason : TACHYCARDIA Blood Pressure : / mmHG Vent. Rate : 078 BPM Atrial Rate : 078 BPM P-R Int : 178 ms QRS Dur : 076 ms QT Int : 368 ms P-R-T Axes : 049 042 046 degrees QTc Int : 419 ms Normal sinus rhythm Normal ECG No previous ECGs available Referred By: Confirmed By:
== END ==
LOC: RESP 14:52
PROVIDERS: ATTEND Emergency Medicine
DX: R00.0 Tachycardia, unspecified (principal)

== ENCOUNTER → 2019-05-06 | Outpatient (CLI) | payer OTHER ==
[2019-04-14 08:33] VITALS: BMI 37.8
--- NOTE | 2019-05-07 18:01 | RT HOLTER TEST ---
FACILITY: [facility] PATIENT NAME: LUANN WALLACE : [id number] MR: [id number] V: [id number] EXAM DATE: ORDERING PHYSICIAN: BRIDGETTE YI TECHNOLOGIST: BOGDAN Hook-up date: 2019-05-06 11:24:00 Duration: 25:21:00 Test Indications: TACHYCARDIA Medications: N/A [id number] QRS complexes 11 Ventricular ectopics which represent <1 % of total QRS comp. 5 Supraventricular ectopics which represent <1 % of total QRS comp. * Paced QRS complexes which represent % of total QRS comp. VENTRICULAR ECTOPY 11 Isolated 0 Bigeminal Cycles 0 Couplets 0 Runs 0 Beats in Runs * Beats LONGEST at * BPM at :: -- * Beats FASTEST at * BPM at :: -- SUPRAVENTRICULAR ECTOPY 5 Isolated 0 Couplets 0 Runs 0 Beats in Runs * Beats LONGEST at * BPM at :: -- * Beats FASTEST at * BPM at :: -- HEART RATES 63 MIN at 10:23:50 2019-05-07 81 AVG 112 MAX at 15:23:44 2019-05-06 LONGEST RR 1.144 secs at 11:54:23 2019-05-07 S-T LEVELS Channel 1 -12.800 mm MIN at 11:24:00 2019-05-06 -12.800 mm MAX at 11:24:00 2019-05-06 Channel 2 -12.800 mm MIN at 11:24:00 2019-05-06 -12.800 mm MAX at 11:24:00 2019-05-06 Channel 3 -12.800 mm MIN at 11:24:00 2019-05-06 -12.800 mm MAX at 11:24:00 2019-05-06 Maximum heart rate (HR) is sinus tachycardia with PAC at 112 beats per minute (BPM). Minimum heart ra te is normal sinus rhythm (NSR) at 63 BPM. There were 11 PVCs noted and 5 PACs noted. No runs were noted. There were episodes of inverted T waves. At times there appears to be more than one P wave morphology. Confirmed by TARYN LI ([id number]) on 05/07/2019 5:58:47 PM Referred By: Overread By: TARYN LI
== END ==
LOC: RESP 11:07
PROVIDERS: ATTEND Emergency Medicine
DX: R00.0 Tachycardia, unspecified (principal)
CPT/HCPCS: 93225; 93226

== ENCOUNTER → 2019-06-14 | Outpatient (CLI) | payer OTHER ==
[2019-04-14 08:33] VITALS: BMI 37.8
== END ==
LOC: LAB 12:30
PROVIDERS: ATTEND Emergency Medicine
DX: Z02.9 Encounter for administrative examinations, unspecified (principal)

== ENCOUNTER → 2019-06-16 | Outpatient (CLI) | payer OTHER ==
[2019-04-14 08:33] VITALS: BMI 37.8
== END ==
LOC: LAB 15:27
PROVIDERS: ATTEND Emergency Medicine
DX: E03.9 Hypothyroidism, unspecified (principal)
CPT/HCPCS: 36415; 84443